=== PATIENT | female | born 1935 | race Caucasian/White ===

== ENCOUNTER 2017-01-20 02:10 | Observation (INO) | payer OTHER ==
[~2017-01-20] VITALS: Ht 152.4 cm; Wt 69.0 kg
[~2017-01-20 02:10] MED LIST: ATEN-173 PO; ATEN50TA8 PO; BIOTCAP2 PO; CLOP1TAB5 PO; DOCU100T7 PO; LOSA1TAB38 PO; MULT-506 PO; OMEP20TA PO; ROSU5TAB PO; SPIR25TA PO; TYLOTC500 PO; TZCSR120 PO
--- NOTE | 2017-01-20 02:29 | EMERGENCY ROOM VISIT NOTE ---
History Report prepared by Leanna: Jocelyne Scott Under the Supervision of: Carlton SalinasO. First contact with patient: 02:12 Chief Complaint: CHEST PAIN Stated Complaint: CHEST PAIN History of Present Illness The patient is a 81 year old female who presents to the Emergency Room with complaints of waxing and waning chest pain beginning 4 days ago. She states that the pain radiates into her back. The patient reports that the pain woke her from her sleep tonight. She reports that she thought that the pain was indigestion. She states that she usually does not get this pain or indigestion. The patient reports that she got a flu shot 2 weeks ago. The patient denies a change in medications, diet, and activity. She does report feeling fatigued, but that she normally feels this way. 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 She denies a history of a heart attack. Pt denies headache, change in vision, fevers, nausea, vomiting, shortness of breath, diarrhea, pain with urination, and melena. Source of History: patient Onset: 4 days ago Position: chest Timing: waxes/wanes Associated Symptoms: + back pain, + fatigue, No fevers, No chills, No headache, No SOB, No nausea, No vomiting Review of Systems See HPI for pertinent positives & negatives. A total of 10 systems reviewed and were otherwise negative. 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 (6) Dyslipidemia (7) Gallbladder problem (8) Paroxysmal atrial tachycardia (9) Paroxysmal ventricular tachycardia (10) Stage III chronic kidney disease (11) Ulcers Surgical Problems: (1) S/P cataract surgery (2) S/P cholecystectomy (3) S/P LEONID (total abdominal hysterectomy) (4) S/P total hip arthroplasty Family History Cancer SISTER Diabetes mellitus MOTHER Gallbladder disease Heart disease Hypertension Social History Smoking Status: Never Smoker Alcohol Use: none Drug Use: none Marital Status: Housing Status: lives with family Occupation Status: retired Current/Historical Medications Scheduled Amlodipine Besylate (Amlodipine Besylate), 5 MG PO QAM Atenolol (Tenormin), 25 MG PO QPM Atenolol (Tenormin), 50 MG PO QAM Biotin (Biotin 5000), 1 CAP PO DAILY Cholecalciferol (Vitamin D3), 1 CAP PO DAILY Clopidogrel Bisulfate (Plavix), 75 MG PO DAILY Diltiazem Hcl Ext Rel (Tiazac), 120 MG PO DAILY Docusate Sodium (Stool Softener), 100 MG PO DIRECTED Losartan Potassium (Cozaar), 100 MG PO DAILY Multivitamin (Multivitamin), 1 TAB PO DAILY Omeprazole (Omeprazole), 20 MG PO BID Rosuvastatin Calcium (Crestor), 5 MG PO DAILY Scheduled PRN Acetaminophen (Tylenol), 500 MG PO Q6 PRN for MILD PAIN Allergies Coded Allergies: Ampicillin (Verified Allergy, Intermediate, urticaria, 01/20/17) Naproxen (Verified Allergy, Intermediate, facial swelling,hypertension, ) Sulfa Antibiotics (Verified Allergy, Intermediate, RASH, 01/20/17) Cephalosporins (Verified Adverse Reaction, Intermediate, RASH, diarrhea, 01/20/17) Ciprofloxacin (Verified Adverse Reaction, Intermediate, itching, 01/20/17) Adhesives (Verified Adverse Reaction, Mild, RED SKIN, 01/20/17) Lisinopril (Verified Adverse Reaction, Mild, cough, 01/20/17) Propoxyphene (Verified Adverse Reaction, Mild, nausea, 01/20/17) Physical Exam Vital Signs Date Time Temp Pulse Resp B/P (MAP) Pulse Ox O2 Delivery O2 Flow Rate FiO2 01/20/17 07:05 65 16 95 01/20/17 07:00 143/67 01/20/17 06:35 64 19 95 01/20/17 06:30 59 23 139/51 97 Room Air 01/20/17 06:10 64 01/20/17 06:00 61 24 130/55 96 Room Air 01/20/17 05:30 60 25 155/74 97 Room Air 01/20/17 05:00 61 12 170/83 95 Room Air 01/20/17 04:32 61 18 225/78 94 Room Air 01/20/17 04:01 55 203/78 96 Room Air 01/20/17 03:53 56 199/87 96 Room Air 01/20/17 03:31 55 221/81 01/20/17 03:28 56 232/88 01/20/17 03:10 55 22 96 01/20/17 03:01 58 19 229/85 96 Room Air 01/20/17 03:00 229/85 01/20/17 02:40 60 14 94 01/20/17 02:30 212/91 01/20/17 02:26 65 01/20/17 02:26 220/75 01/20/17 02:20 Room Air 01/20/17 02:19 219/83 01/20/17 02:18 243/97 01/20/17 02:15 36.5 65 20 219/83 96 Room Air 01/20/17 02:15 Room Air 01/19/17 07:40 Room Air Physical Exam GENERAL: alert, well appearing, well nourished, no distress, non-toxic EYE EXAM: normal conjunctiva, PERRL and EOM's grossly intact OROPHARYNX: no exudate, no erythema, lips, buccal mucosa, and tongue normal and mucous membranes are moist NECK: supple, no nuchal rigidity, no adenopathy, non-tender LUNGS: Clear to auscultation. Normal chest wall mechanics, no w/r/r HEART: no murmurs, S1 normal and S2 normal ABDOMEN: abdomen soft, non-tender, normo-active bowel sounds, no masses, no rebound or guarding. BACK: Back is symmetrical on inspection and there is no deformity, no midline tenderness, no CVA tenderness. SKIN: no rashes and no bruising UPPER EXTREMITIES: upper extremities are grossly normal. Nml rom and nml pulses b/l. LOWER EXTREMITIES: No pitting edema. Nml rom and nml pulses b/l. NEURO EXAM: Normal sensorium, cranial nerves II-XII grossly intact, normal speech, no gross weakness of arms, no gross weakness of legs. Medical Decision & Procedures ER Provider Diagnostic Interpretation: Chest X-Ray 1 view: No cardiomegaly. No effusion. No pulmonary edema. No widening mediastinum. No focal infiltrate. No overt pulmonary edema. Radiology results have been interpreted by [facility]. CTA CHEST: Compared to CT 04/03/14. Motion artifact. No evidence of PE. Peripheral vessels not well seen. No obvious dissection. Mild atelectasis. No pneumothorax or pleural effusion. Age-indeterminate compression deformity of the L1 vertebral body. Additional incidental findings. Laboratory Results Test 01/20/17 01:39 01/20/17 04:20 D-Dimer 580 ug/L FEU (0-500) Magnesium Level 2.1 mg/dl (1.8-2.4) Total Bilirubin 0.4 mg/dl (0.2-1) Aspartate Amino Transf (AST/SGOT) 15 U/L (15-37) Alanine Aminotransferase (ALT/SGPT) 23 U/L (12-78) Alkaline Phosphatase 78 U/L (45-117) Pro-B-Type Natriuretic Peptide 232 pg/ml (0-1800) Total Protein 7.6 gm/dl (6.4-8.2) Albumin 3.7 gm/dl (3.4-5.0) Globulin 3.9 gm/dl (2.5-4.0) Albumin/Globulin Ratio 0.9 (0.9-2) Lipase 214 U/L (73-393) Free Thyroxine 1.14 ng/dl (0.80-1.60) Urine Color YELLOW Urine Appearance CLEAR (CLEAR) Urine pH 7.5 (4.5-7.5) Urine Specific [place] 1.012 (1.000-1.030) Urine Protein NEG (NEG) Urine Glucose (UA) NEG (NEG) Urine Ketones NEG (NEG) Urine Occult Blood NEG (NEG) Urine Nitrite NEG (NEG) Urine Bilirubin NEG (NEG) Urine Urobilinogen NEG (NEG) Urine Leukocyte Esterase NEG (NEG) Laboratory results per my review. Medications Administered Medications (Trade) Dose Ordered Sig/Mary Route Start Time Stop Time Status Last Admin Dose Admin Sodium Chloride 1,000 ml @ 200 mls/hr Q5H STAT IV 01/20/17 03:12 01/20/17 08:11 DC 01/20/17 03:59 200 MLS/HR Nitroglycerin (Nitroglycerin 2% Oint) 1 inch NOW ONCE EXT 01/20/17 03:30 01/20/17 03:31 DC 01/20/17 03:30 1 INCH Hydralazine HCl (HydrALAZINE INJ) 10 mg NOW STAT IV. 01/20/17 04:37 01/20/17 04:38 DC 01/20/17 05:00 10 MG Morphine Sulfate (MoRPHine SULFATE INJ) 4 mg NOW STAT IV 01/20/17 05:28 01/20/17 05:29 DC 01/20/17 05:33 4 MG Ondansetron HCl (Zofran Inj) 4 mg NOW STAT IV 01/20/17 05:52 01/20/17 05:53 DC 01/20/17 05:56 4 MG Ketorolac Tromethamine (Toradol Inj) 15 mg NOW STAT IV 01/20/17 06:16 01/20/17 06:17 DC 01/20/17 06:23 15 MG ECG Indication: chest pain Rate (beats per minute): 61 Rhythm: sinus rhythm Findings: no acute ischemic change, other (normal axis, normal intervals ) Change: repeat ECG: sinus rhythm, rate of 61, normal axis, normal intervals, no acute ischemic changes ED Course 0220: The patient was evaluated in room B6. A complete history and physical exam was performed. 0312: Ordered Sodium Chloride 1,000 ml @ 200 mls/hr IV. 0330: Ordered Nitroglycerin 1 inch EXT. 0437: Ordered Hydralazine HCl 10 mg IV. 0500: I updated the patient on results. 0528: Ordered Morphine Sulfate 4 mg IV. 0552: Ordered Ondansetron HCl 4 mg IV. 0615: The patient reports still having pain, but that it is better than it was. 0616: Ordered Toradol Inj 15 mg IV. 0625: Upon reevaluation, the patient is resting. I discussed the findings and the treatment plan with the patient. She expresses agreement and understanding. I spoke with Dr. Ohara of [facility] She will be evaluated for further management. Medical Decision Differential diagnosis: Etiologies such as cardiac ischemia, aortic dissection, pulmonary embolism, pneumonia, pneumothorax, musculoskeletal, infections, pericarditis, myocarditis , esophageal rupture, gastrointestinal, as well as others were entertained. Pt with persistent hypertension until administration of hydralazine. Pain persistent despite meds. No evidence of vascular etiology. Trop negative but pt with multiple risk factors. No recent hx of suggest occult infectious etiology, No evidence of tamponade. Pt aware of all results and agreeable with plan for admission. Despite atypical pain over the last several days and negative trop initially, concern for possible ACS. Discussed case with admitting hospitalist. Medication Reconcilliation Current Medication List: was personally reviewed by me Blood Pressure Screening Patient's blood pressure: Elevated blood pressure Blood pressure disposition: Referred to PCP Consults Time Called: [phone] Consulting Physician: Dr. Pemberton Returned Call: [phone] I reviewed the patient's case with Dr. Ohara. He will evaluate the patient for further management. Impression Primary Impression: Chest pain Additional Impressions: Hypertension DM type 2 (diabetes mellitus, type 2) Scribe Attestation The scribe's documentation has been prepared under my direction and personally reviewed by me in its entirety. I confirm that the note above accurately reflects all work, treatment, procedures, and medical decision making performed by me. Departure Information Dispostion Being Evaluated By Hospitalist Prescriptions Amlodipine Besylate (Amlodipine Besylate) 5 Mg Tab 5 MG PO QAM, #30 TAB Prov: Dav Garcia MD 01/23/17 Referrals Bee Salgado M.D. 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
[2017-01-20] MEDS ORDERED: DILT120C68 PO (02:42)
[2017-01-20 02:44] LABS: BASO % 0.5 %; BASO ABS # 0.04 K/uL (0-0.2); COMPLETE YES; EOS % 4.2 %; IG% 0.1 %; LYMPH % 25.8 %; LYMPH ABS # 2.01 K/uL (1.2-3.4); MEAN CELL VOLUME 93.5 fL (80-100); MEAN CORPUSCULAR HEMOGLOBIN 31.6 pg (25-34); MEAN CORPUSCULAR HGB CONC 33.8 g/dl (32-36); MEAN PLATELET VOLUME 10.2 fL (7.4-10.4); MONO % 7.8 %; NEUT % 61.6 %; PLATELET COUNT 313 K/uL (130-400); RED BLOOD COUNT 4.49 M/uL (4.2-5.4)
[2017-01-20] MEDS ORDERED: CHOL2000 PO (02:45)
[2017-01-20 03:03] LABS: PROTHROMBIN TIME (PATIENT) 10.6 SECONDS (9.0-12.0)
[2017-01-20 03:05] LABS: ALT/SGPT 23 U/L (12-78); AST/SGOT 15 U/L (15-37); BLOOD UREA NITROGEN 22 mg/dl (7-18); BUN/CREATININE RATIO 24.2 (10-20); CALCIUM 9.2 mg/dl (8.5-10.1); CARBON DIOXIDE 26 mmol/L (21-32); CHLORIDE 105 mmol/L (98-107); CREATININE 0.89 mg/dl (0.60-1.20); GLUCOSE 137 mg/dl (70-99); MAGNESIUM 2.1 mg/dl (1.8-2.4); POTASSIUM 3.7 mmol/L (3.5-5.1); SODIUM 141 mmol/L (136-145)
[2017-01-20] MEDS ORDERED: SODIUM CHLORIDE 0.9% 1000ML 1,000 ML IV STA (03:12)
[2017-01-20 03:16] LABS: ALB/GLOB RATIO 0.9 (0.9-2); ALKALINE PHOSPHATASE 78 U/L (45-117)
[2017-01-20] MEDS ORDERED: NITROGLYCERIN OINT 2% 1GM PACKET EXT ONE (03:30)
[2017-01-20] MEDS ORDERED: OPTIRAY 320 IV PRN (04:00)
[2017-01-20 04:36] LABS: URINE APPEARANCE CLEAR (CLEAR); URINE BILIRUBIN NEG (NEG); URINE COLOR YELLOW; URINE NITRITE NEG (NEG); URINE PH 7.5 (4.5-7.5); URINE SPECIFIC GRAVITY 1.012 (1.000-1.030); UROBILINOGEN NEG (NEG); ZZUR CULT IF INDIC CLEAN CATCH NO
[2017-01-20] MEDS ORDERED: HydrALAZINE HCL 20 MG/ML VIAL IV. STA (04:37)
[2017-01-20 04:42] LABS: MANUAL MICROSCOPIC REQUIRED? NO; REVIEW REQ? NO
[2017-01-20] MEDS ORDERED: MoRPHine SULFATE 4 MG/ML 1 ML CARP\\VIAL IV STA (05:28)
[2017-01-20] MEDS ORDERED: ONDANSETRON INJ 2 MG/ML 2 ML VIAL IV STA (05:52)
[2017-01-20] MEDS ORDERED: KETOROLAC TROMETHAMINE 30 MG/ML VIAL IV STA (06:16)
--- NOTE | 2017-01-20 06:47 | DIAGNOSTIC IMAGING REPORT ---
CHEST ONE VIEW PORTABLE CLINICAL HISTORY: Atypical chest pain COMPARISON STUDY: 03/29/2015 FINDINGS: The heart is at the upper limits of normal in size. There is no failure. There is no focal pulmonary consolidation. There are no pleural effusions.[ IMPRESSION: No active disease in the chest. Electronically signed by: Wade Ricks M.D. 01/20/2017 6:46 AM Dictated Date/Time: 01/20/2017 6:46 AM
[2017-01-20] MEDS ORDERED: SODIUM CHLORIDE 0.9% 500ML 500 ML IV SCH (07:15)
[2017-01-20] MEDS ORDERED: ACETAMINOPHEN 325 MG TAB PO PRN (07:15)
[2017-01-20] MEDS ORDERED: MoRPHine SULFATE 2 MG/ML CARP IV PRN (07:15)
[2017-01-20] MEDS ORDERED: ONDANSETRON INJ 2 MG/ML 2 ML VIAL IV PRN (07:15)
--- NOTE | 2017-01-20 07:25 | DIAGNOSTIC IMAGING REPORT ---
CT ANGIOGRAM OF THE CHEST CLINICAL HISTORY: Atypical chest pain. COMPARISON STUDY: CT scan of the chest dated 04/03/2014. Chest x-ray dated 01/20/2017. TECHNIQUE: Following the IV administration of 92 cc of Optiray 320, CT angiogram of the chest was performed from the upper abdomen to the thoracic inlet utilizing the pulmonary embolus protocol. Images are reviewed in the axial, sagittal, and coronal planes. 3-D MIPS images are created and assessed. IV contrast was administered without complication. A dose lowering technique was utilized adhering to the principles of ALARA. Examination is significantly degraded by motion artifact. CT DOSE: 306.46 mGy.cm FINDINGS: Thyroid: Imaged portions of the thyroid gland are mildly enlarged and heterogeneous in attenuation. Thoracic aorta: There is atherosclerotic calcification of the thoracic aorta, which is normal in caliber and demonstrates standard 3-vessel arch anatomy. No dissection is seen. Pulmonary vasculature: The main pulmonary arteries are dilated suggesting pulmonary artery hypertension. There are no filling defects identified in main, lobar, or segmental pulmonary branches to suggest pulmonary embolus. Evaluation of the peripheral branches is degraded by motion artifact. Heart: The heart is enlarged and without pericardial effusion. The coronary arteries are densely calcified. Lungs and pleural spaces: Evaluation of the lung parenchyma is degraded by motion artifact. No airspace consolidation or pleural effusion is seen. There is bibasilar atelectasis The trachea and central airways are clear. Mediastinum: There are numerous subcentimeter mediastinal lymph nodes. These are not pathologically enlarged by size criteria. Tessie: Clear. Axillae: There is no axillary lymphadenopathy. Upper abdomen: Partially visualized upper abdominal viscera is within normal limits. Skeletal structures: The skeletal structures are osteopenic. Degenerative change and hyperkyphosis are noted in the thoracic spine. There is an age indeterminant superior endplate compression deformity of L1, new from 2013. Arthritic change is also seen in the shoulders. No lytic or blastic bony lesions are seen. IMPRESSION: 1. Motion degraded examination. 2. There is no evidence of pulmonary embolus in the main, lobar, or segmental pulmonary arteries. 3. There is no airspace consolidation or pleural effusion. 4. Cardiomegaly. 5. There is an age indeterminant superior endplate compression deformity of L1, new from 2013. Electronically signed by: Santiago Hanley M.D. 01/20/2017 7:24 AM Dictated Date/Time: 01/20/2017 7:18 AM
[2017-01-20] MEDS ORDERED: ALBUTEROL 0.083% NEBU SOLN 3 ML VIAL INH PRN (07:45)
--- NOTE | 2017-01-20 07:55 | History and Physical ---
History & Physical Date & Time of Service: Jan 20, 2017 at 07:19 Chief Complaint: Chest Pain Primary Care Physician: Bee Salgado M.D. History of Present Illness Source: patient, family Patient is a 81 yr female with PMH of CVA, GERD, HLP, HTN, DDD and other problems presents with history of Intermittent chest pain since 1 week duration. Patient states chest pain is dull, across the chest, radiates to b/l upper arms, 2/10 intensity, which have been progressively worsening since yesterday. Received NTG in ED without much help. Reports associated nausea but denies vomiting. Reports chronic orthostatic lightheadedness since having had stroke in 2014. Also states having cough with yellowish expectoration. Patient presented with uncontrolled BP which improved with hydralazine. Admits to being non complaint with salt intake. Denies any history of SOB, wheezing, orthopnea, PND, leg swelling, abd pain, diarrhea, dysuria, palpitations, fever, chills, headache, change in vision. 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 Status: Chronic (6) Dyslipidemia Status: Chronic (7) Gallbladder problem Status: Chronic (8) Paroxysmal atrial tachycardia Status: Chronic (9) Paroxysmal ventricular tachycardia Status: Chronic (10) Stage III chronic kidney disease Status: Chronic (11) Ulcers Status: Chronic Surgical Problems: (1) S/P cataract surgery Status: Chronic (2) S/P cholecystectomy Status: Chronic (3) S/P LEONID (total abdominal hysterectomy) Status: Chronic (4) S/P total hip arthroplasty Status: Chronic Family History Cancer SISTER Diabetes mellitus MOTHER Gallbladder disease Heart disease Hypertension Reviewed Social History Smoking Status: Never Smoker Alcohol Use: none Drug Use: none Marital Status: Occupational Status: retired Immunizations History of Influenza Vaccine: N/A History of Tetanus Vaccine?: Yes History of Pneumococcal: Yes History of Hepatitis B Vaccine: No Allergies Coded Allergies: Ampicillin (Verified Allergy, Intermediate, urticaria, 01/20/17) Naproxen (Verified Allergy, Intermediate, facial swelling,hypertension, ) Sulfa Antibiotics (Verified Allergy, Intermediate, RASH, 01/20/17) Cephalosporins (Verified Adverse Reaction, Intermediate, RASH, diarrhea, 01/20/17) Ciprofloxacin (Verified Adverse Reaction, Intermediate, itching, 01/20/17) Adhesives (Verified Adverse Reaction, Mild, RED SKIN, 01/20/17) Lisinopril (Verified Adverse Reaction, Mild, cough, 01/20/17) Propoxyphene (Verified Adverse Reaction, Mild, nausea, 01/20/17) Home Medications Scheduled Atenolol (Tenormin), 25 MG PO QPM Atenolol (Tenormin), 50 MG PO QAM Biotin (Biotin 5000), 1 CAP PO DAILY Cholecalciferol (Vitamin D3), 1 CAP PO DAILY Clopidogrel Bisulfate (Plavix), 75 MG PO DAILY Diltiazem Hcl Ext Rel (Tiazac), 120 MG PO DAILY Docusate Sodium (Stool Softener), 100 MG PO DIRECTED Losartan Potassium (Cozaar), 100 MG PO DAILY Multivitamin (Multivitamin), 1 TAB PO DAILY Omeprazole (Omeprazole), 20 MG PO BID Rosuvastatin Calcium (Crestor), 5 MG PO DAILY Review of Systems See HPI for pertinent positives & negatives. A total of 10 systems reviewed and were otherwise negative. Physical Exam Vital Signs Date Time Temp Pulse Resp B/P (MAP) Pulse Ox O2 Delivery O2 Flow Rate FiO2 01/20/17 06:30 59 23 139/51 97 Room Air 01/20/17 06:10 64 01/20/17 06:00 61 24 130/55 96 Room Air 01/20/17 05:30 60 25 155/74 97 Room Air 01/20/17 05:00 61 12 170/83 95 Room Air 01/20/17 04:32 61 18 225/78 94 Room Air 01/20/17 04:01 55 203/78 96 Room Air 01/20/17 03:53 56 199/87 96 Room Air 01/20/17 03:31 55 221/81 01/20/17 03:28 56 232/88 01/20/17 03:10 55 22 96 01/20/17 03:01 58 19 229/85 96 Room Air 01/20/17 03:00 229/85 01/20/17 02:40 60 14 94 01/20/17 02:30 212/91 01/20/17 02:26 65 01/20/17 02:26 220/75 01/20/17 02:20 Room Air 01/20/17 02:19 219/83 01/20/17 02:18 243/97 01/20/17 02:15 36.5 65 20 219/83 96 Room Air 01/20/17 02:15 Room Air General Appearance: WD/WN, no apparent distress Head: normocephalic, atraumatic Eyes: normal inspection, PERRL, EOMI, sclerae normal ENT: normal ENT inspection, hearing grossly normal Neck: supple, trachea midline Respiratory/Chest: chest non-tender, lungs clear, normal breath sounds, no respiratory distress, no accessory muscle use Cardiovascular: regular rate, rhythm, no edema, + systolic murmur Abdomen/GI: normal bowel sounds, non tender, soft Back: normal inspection Extremities/Musculoskelatal: normal inspection, no pedal edema 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, no motor/sensory deficits, alert, normal mood/affect, oriented x 3 Skin: normal color, warm/dry Diagnostics Laboratory Results Results Past 24 Hours Test 01/20/17 01:39 01/20/17 04:20 01/20/17 07:12 Range/Units White Blood Count 7.80 4.8-10.8 K/uL Red Blood Count 4.49 4.2-5.4 M/uL Hemoglobin 14.2 12.0-16.0 g/dL Hematocrit 42.0 37-47 % Mean Corpuscular Volume 93.5 80-100 fL Mean Corpuscular Hemoglobin 31.6 25-34 pg Mean Corpuscular Hemoglobin Concent 33.8 32-36 g/dl Platelet Count 313 130-400 K/uL Mean Platelet Volume 10.2 7.4-10.4 fL Neutrophils (%) (Auto) 61.6 % Lymphocytes (%) (Auto) 25.8 % Monocytes (%) (Auto) 7.8 % Eosinophils (%) (Auto) 4.2 % Basophils (%) (Auto) 0.5 % Neutrophils # (Auto) 4.80 1.4-6.5 K/uL Lymphocytes # (Auto) 2.01 1.2-3.4 K/uL Monocytes # (Auto) 0.61 0.11-0.59 K/uL Eosinophils # (Auto) 0.33 0-0.5 K/uL Basophils # (Auto) 0.04 0-0.2 K/uL RDW Standard Deviation 43.9 36.4-46.3 fL RDW Coefficient of Variation 12.7 11.5-14.5 % Immature Granulocyte % (Auto) 0.1 % Immature Granulocyte # (Auto) 0.01 0.00-0.02 K/uL Prothrombin Time 10.6 9.0-12.0 SECONDS Prothromb Time International Ratio 1.0 0.9-1.1 D-Dimer 580 0-500 ug/L FEU Sodium Level 141 136-145 mmol/L Potassium Level 3.7 3.5-5.1 mmol/L Chloride Level 105 98-107 mmol/L Carbon Dioxide Level 26 21-32 mmol/L Anion Gap 10.0 3-11 mmol/L Blood Urea Nitrogen 22 7-18 mg/dl Creatinine 0.89 0.60-1.20 mg/dl Est Creatinine Clear Calc Drug Dose 44.3 ml/min Estimated GFR () 70.0 Estimated GFR (Non- 60.4 BUN/Creatinine Ratio 24.2 10-20 Random Glucose 137 70-99 mg/dl Calcium Level 9.2 8.5-10.1 mg/dl Magnesium Level 2.1 1.8-2.4 mg/dl Total Bilirubin 0.4 0.2-1 mg/dl Aspartate Amino Transf (AST/SGOT) 15 15-37 U/L Alanine Aminotransferase (ALT/SGPT) 23 12-78 U/L Alkaline Phosphatase 78 45-117 U/L Troponin I < 0.015 0-0.045 ng/ml Pro-B-Type Natriuretic Peptide 232 0-1800 pg/ml Total Protein 7.6 6.4-8.2 gm/dl Albumin 3.7 3.4-5.0 gm/dl Globulin 3.9 2.5-4.0 gm/dl Albumin/Globulin Ratio 0.9 0.9-2 Lipase 214 73-393 U/L Thyroid Stimulating Hormone (TSH) 5.160 0.300-4.500 uIu/ml Urine Color YELLOW Urine Appearance CLEAR CLEAR Urine pH 7.5 4.5-7.5 Urine Specific [place] 1.012 1.000-1.030 Urine Protein NEG NEG Urine Glucose (UA) NEG NEG Urine Ketones NEG NEG Urine Occult Blood NEG NEG Urine Nitrite NEG NEG Urine Bilirubin NEG NEG Urine Urobilinogen NEG NEG Urine Leukocyte Esterase NEG NEG Diagnostic Radiology CXR: No active disease in the chest. CTA: Initial reading:No PE, No dissection, mild atelectasis, No Pneumothorax or pleural effusion EKG EKG: NSR, Non specific ST changes Impression Assessment and Plan Chest Pain: R/O ACS Risk factors: H/O HTN, HLP Initial troponin:Negative EKG shows:NSR, Nonspecific ST changes CXR: Unremarkable CTA: Initial reading:No PE, No dissection, mild atelectasis, No Pneumothorax or pleural effusion Official reading:pending Check ECHO Trend serial cardiac enzymes, repeat EKG in AM, fasting lipid panel Continue plavix, beta weston, statins Oxygen PRN Cardiology consult Hypertensive Urgency: Non compliance with salt intake currently BP improved Continue Atenolol, Diltiazem, losartan Monitor Elevated D-dimer: follow up CTA, venous doppler Elevated TSH: check free T4 H/O CVA: continue plavix, statins GERD: continue PPI HLP: continue statins DVT Px: Heparin SQ Code Status: Full Code Disposition: Observe in Telemetry VTE Prophylaxis VTE Risk Assessment Done? Y/N: Yes Risk Level: Low
[2017-01-20] MEDS ORDERED: IV FLUIDS COMPLETED PRN (08:00)
[2017-01-20 08:17] VITALS: BP 157/65; PULSE 64; TEMP 36.6; O2SAT 96; Ht 152.4 cm; Wt 69.0 kg
[2017-01-20] MEDS ORDERED: ROSUVASTATIN CALCIUM 10 MG TAB PO SCH (09:00)
--- NOTE | 2017-01-20 10:53 | DIAGNOSTIC IMAGING REPORT ---
ULTRASOUND VENOUS DOPPLER LWR EXT BILA CLINICAL HISTORY: Leg swelling COMPARISON STUDY: August 08, 2012 FINDINGS: Real-time and color flow Doppler imaging were performed. Flow was seen within the femoral, popliteal and calf veins with no intraluminal thrombus demonstrated. The saphenous vein is patent. IMPRESSION: No evidence of lower extremity DVT. Electronically signed by: Wade Ricks M.D. 01/20/2017 10:52 AM Dictated Date/Time: 01/20/2017 10:51 AM
[2017-01-20] MEDS: CHOLECALCIFEROL 1000 INTER.UNIT TAB PO SCH (10:56)
[2017-01-20] MEDS: NITROGLYCERIN OINT 2% 1GM PACKET EXT SCH ×3 (10:56→21:56)
[2017-01-20] MEDS: MULTIVITAMIN TAB PO SCH (10:57)
[2017-01-20] MEDS: CLOPIDOGREL BISULFATE 75 MG TAB PO SCH (10:58)
[2017-01-20] MEDS: PANTOprazole SOD 40 MG TAB PO SCH ×2 (10:58→21:33)
[2017-01-20] MEDS: DILTIAZEM HCL 120 MG EXT REL CAP PO SCH (10:59)
[2017-01-20] MEDS: LOSARTAN POTASSIUM 50 MG TAB PO SCH (11:00)
[2017-01-20 12:00] VITALS: BP 145/71; PULSE 65; TEMP 36.7; O2SAT 95
[2017-01-20] MEDS ORDERED: NURSING VERBAL MED ORDER ONE ×2 (12:30→21:45)
--- NOTE | 2017-01-20 13:24 | CARDIOLOGY CONSULTATION ---
DATE OF CONSULTATION: 01/20/2017 DATE OF CONSULTATION: 01/20/2017 REQUESTED BY: Blas Subramanian. REASON FOR CONSULTATION: Chest pain. HISTORY OF PRESENT ILLNESS: This is an 81-year-old female who has been followed by Gabe Freedman through the cardiology clinic with history of heart palpitations. She has no significant past cardiac history such as coronary artery disease or valvular heart disease. She does have a previous history of a stroke, is treated for hypertension and diabetes. She was in her usual state of health up until a week ago. She began to have chest discomfort which she describes as a heaviness across the anterior portion of her chest which was more or less continuous throughout the week. It is not associated with shortness of breath or diaphoresis. She had no nausea or vomiting. She does have a history of GERD. She has noticed no melena or hematochezia. The patient was admitted and her chest pain resolved. She has not had a reoccurrence. Her EKGs showed no acute changes. Her first set of cardiac markers are negative. ALLERGIES: AMPICILLIN, NAPROXEN, SULFA ANTIBIOTICS, CEPHALOSPORINS, CIPROFLOXACIN, ADHESIVES, LISINOPRIL, PROPOXYPHENE. PAST MEDICAL HISTORY: As outlined in the history of chief complaint. The patient has had a previous stroke. 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 She is a type 2 diabetic with a history of dyslipidemia. She is treated for asthma. She has had paroxysmal atrial arrhythmias. She has stage III kidney disease. In the past, she has been treated for GERD as well as stomach ulcers. FAMILY MEDICAL HISTORY: Noncontributory. SOCIAL HISTORY: The patient has never smoked. She is and lives with her spouse. REVIEW OF SYSTEMS: A 10-point review of systems is negative except for the history of chief complaint. PHYSICAL EXAMINATION: GENERAL: She is alert and oriented. VITAL SIGNS: Blood pressure is 130/60, pulse is regular at 60 beats per minute. She is afebrile. HEAD, EYES, EARS, NOSE, AND THROAT: She is normocephalic. Pupils are equal and reactive to light. Extraocular muscles are intact bilaterally. NECK: The neck veins are flat. Carotids have good upstrokes bilaterally without bruits. Thyroid is nonpalpable. RESPIRATORY: Breath sounds equal bilaterally and clear to auscultation. CARDIOVASCULAR: Heart has a regular rhythm. Normal S1, S2. No S3, S4. No cardiac rubs or murmurs. GASTROINTESTINAL: Abdomen is soft, nontender without organomegaly. EXTREMITIES: Free of edema, digit clubbing, or cyanosis. NEUROLOGIC: Grossly intact. SKIN: Warm to touch. LYMPH NODES: Negative to palpation. IMPRESSION: 1. Atypical chest pain. 2. Diabetes mellitus. 3. Dyslipidemia. 4. History of stroke. 5. History of gastroesophageal reflux disease. RECOMMENDATIONS: The patient does not have elevation in her cardiac markers despite having ongoing chest pain for approximately a week. I think if her second set of markers are negative, then I do not think any further cardiac testing is indicated. You may want to consider a GI evaluation as patient may need endoscopy with her history of GERD and previous stomach ulcers. She may have recurrence for her peptic acid disease.
[2017-01-20] MEDS: HEPARIN SOD 5000 UNIT/0.5 ML CARP SQ SCH ×2 (14:00→21:56)
[2017-01-20 15:10] VITALS: BP 119/66; PULSE 56; TEMP 36.4; O2SAT 93
[2017-01-20] MEDS ORDERED: METOPROLOL TARTRATE 1 MG/ML VIAL IV PRN (15:15)
--- NOTE | 2017-01-20 15:50 | ECHOCARDIOGRAM REPORT ---
*NOTICE TO RECEIVING REPUBLICAN AGENCY This information is strictly Confidential and protected under [place] law. [place] law prohibits you from making any further disclosure of this information unless further disclosure is expressly permitted by the written consent of the person to whom it pertains or is authorized by law. A general authorization for the release of medical or other information is not sufficient for this purpose. Hospital accepts no responsibility if the information is made available to any other person, INCLUDING THE PATIENT. Interpretation Summary * Name: RONNIE GRANGER Study Date: 01/20/2017 09:14 AM BP: 132/55 mmHg * Patient Location: [facility] HR: 63 * : 1935 (M/d/yyyy) Gender: Female Height: 60 in * Age: 81 yrs Ethnicity: [place] Weight: 166 lb * Ordering Physician: Rashawn Ohara * Referring Physician: Brianna Mari D.O. * Performed By: Vicenta Irizarry RCS * * Reason For Study: CHEST PAIN * BSA: 1.7 m2 * -- Conclusions -- * There is moderate concentric left ventricular hypertrophy. * Left ventricular systolic function is normal. * Ejection Fraction = 65-70%. * The left ventricular wall motion is normal. * The right ventricular systolic function is normal. * Grade I diastolic dysfunction, (abnormal relaxation pattern). Procedure Details * A complete two-dimensional transthoracic echocardiogram was performed (2D, M-mode, Doppler and color flow Doppler). Left Ventricle * The left ventricle is grossly normal size. * There is moderate concentric left ventricular hypertrophy. * Left ventricular systolic function is normal. * Ejection Fraction = 65-70%. * The left ventricular wall motion is normal. Right Ventricle * The right ventricle is normal size. * The right ventricular systolic function is normal. Atria * The left atrium is mildly dilated. * Right atrial size is normal. * The interatrial septum is intact with no evidence for an atrial septal defect. Mitral Valve * There is moderate mitral annular calcification. * Significant mitral regurgitation is absent. Tricuspid Valve * The tricuspid valve anatomy is normal. * Significant tricuspid regurgitation is absent. Aortic Valve * Aortic valve sclerosis mild, without significant aortic valvular stenosis. Pulmonic Valve * The pulmonic valve is not well visualized. * There is no significant pulmonary regurgitation. Great Vessels * The aortic root and proximal ascending aorta are normal sized. Pericardium/Pleural * There is no pericardial effusion. Left Ventricular Diastolic Function * Grade I diastolic dysfunction, (abnormal relaxation pattern). MMode 2D Measurements and Calculations IVSd 1.5 cm IVSs 1.8 cm LVIDd 3.5 cm LVIDs 2.4 cm LVPWd 1.2 cm LVPWs 1.4 cm IVS/LVPW 1.2 FS 33.1 % EDV(Teich) 51.9 ml ESV(Teich) 19.3 ml EF(Teich) 62.8 % EDV(cubed) 44.0 ml ESV(cubed) 13.1 ml EF(cubed) 70.1 % % IVS thick 24.3 % % LVPW thick 10.4 % LV mass(C)d 166.5 grams LV mass(C)dI 96.6 grams/m\S\2 LV mass(C)s 132.9 grams LV mass(C)sI 77.1 grams/m\S\2 SV(Teich) 32.6 ml SI(Teich) 18.9 ml/m\S\2 SV(cubed) 30.8 ml SI(cubed) 17.9 ml/m\S\2 Ao root diam 2.9 cm Ao root area 6.4 cm\S\2 LA dimension 3.5 cm LA/Ao 1.2 LVOT diam 1.8 cm LVOT area 2.5 cm\S\2 LVAd ap4 27.7 cm\S\2 LVLd ap4 6.9 cm EDV(MOD-sp4) 88.9 ml EDV(sp4-el) 93.8 ml LVAs ap4 15.2 cm\S\2 LVLs ap4 5.6 cm ESV(MOD-sp4) 34.0 ml ESV(sp4-el) 34.5 ml EF(MOD-sp4) 61.7 % EF(sp4-el) 63.2 % LVAd ap2 28.1 cm\S\2 LVLd ap2 7.4 cm EDV(MOD-sp2) 88.0 ml EDV(sp2-el) 90.3 ml LVAs ap2 12.4 cm\S\2 LVLs ap2 5.4 cm ESV(MOD-sp2) 24.1 ml ESV(sp2-el) 24.1 ml EF(MOD-sp2) 72.6 % EF(sp2-el) 73.3 % LVLd %diff 6.2 % EDV(MOD-bp) 89.3 ml LVLs %diff -3.93 % ESV(MOD-bp) 28.5 ml EF(MOD-bp) 68.1 % SV(MOD-sp4) 54.9 ml SI(MOD-sp4) 31.8 ml/m\S\2 SV(MOD-sp2) 63.9 ml SI(MOD-sp2) 37.1 ml/m\S\2 SV(MOD-bp) 60.9 ml SI(MOD-bp) 35.3 ml/m\S\2 SV(sp4-el) 59.3 ml SI(sp4-el) 34.4 ml/m\S\2 SV(sp2-el) 66.2 ml SI(sp2-el) 38.4 ml/m\S\2 Doppler Measurements and Calculations MV E max jasen 90.6 cm/sec MV A max jasen 138.6 cm/sec MV E/A 0.65 MV P1/2t max jasen 115.5 cm/sec MV P1/2t 89.6 msec MVA(P1/2t) 2.5 cm\S\2 MV dec slope 377.4 cm/sec\S\2 MV dec time 0.31 sec Ao V2 max 166.0 cm/sec Ao max PG 11.0 mmHg Ao max PG (full) 0.90 mmHg ISRAEL(V,A) 2.4 cm\S\2 ISRAEL(V,D) 2.4 cm\S\2 LV V1 max PG 10.1 mmHg LV V1 max 159.1 cm/sec PA V2 max 103.9 cm/sec PA max PG 4.3 mmHg PI max jasen 171.8 cm/sec PI max PG 11.8 mmHg PI dec slope 173.2 cm/sec\S\2 PI P1/2t 290.5 msec TR max jasen 297.0 cm/sec
--- NOTE | 2017-01-20 18:04 | Progress Note ---
Internal Med Progress Note Date of Service: Jan 20, 2017. Provider Documentation: resting comfortably. denies any chest pain or sob. No nausea. hemodynamics stable. Mild elevation in troponin could be from elevated BP on presentation. Will trend CE , Follow echo. BP control. Cardiology on board. ASSESSMENT & PLAN: [] DVT PROPHYLAXIS [] DISPOSITION [] Vital Signs: Date Time Temp Pulse Resp B/P (MAP) Pulse Ox O2 Delivery O2 Flow Rate FiO2 01/20/17 16:00 Room Air 01/20/17 15:10 36.4 56 18 119/66 (83) 93 Room Air 01/20/17 12:00 Room Air 01/20/17 12:00 36.7 65 20 145/71 (95) 95 Room Air 01/20/17 08:17 36.6 64 18 157/65 96 Room Air 01/20/17 07:47 36.5 65 16 132/55 95 01/20/17 07:30 132/55 01/20/17 07:05 65 16 95 01/20/17 07:00 143/67 01/20/17 06:35 64 19 95 01/20/17 06:30 59 23 139/51 97 Room Air 01/20/17 06:10 64 01/20/17 06:00 61 24 130/55 96 Room Air 01/20/17 05:30 60 25 155/74 97 Room Air 01/20/17 05:00 61 12 170/83 95 Room Air 01/20/17 04:32 61 18 225/78 94 Room Air 01/20/17 04:01 55 203/78 96 Room Air 01/20/17 03:53 56 199/87 96 Room Air 01/20/17 03:31 55 221/81 01/20/17 03:28 56 232/88 01/20/17 03:10 55 22 96 01/20/17 03:01 58 19 229/85 96 Room Air 01/20/17 03:00 229/85 01/20/17 02:40 60 14 94 01/20/17 02:30 212/91 01/20/17 02:26 65 01/20/17 02:26 220/75 01/20/17 02:20 Room Air 01/20/17 02:19 219/83 01/20/17 02:18 243/97 01/20/17 02:15 36.5 65 20 219/83 96 Room Air 01/20/17 02:15 Room Air Lab Results: Results Past 24 Hours Test 01/20/17 01:39 01/20/17 04:20 01/20/17 12:56 Range/Units White Blood Count 7.80 4.8-10.8 K/uL Red Blood Count 4.49 4.2-5.4 M/uL Hemoglobin 14.2 12.0-16.0 g/dL Hematocrit 42.0 37-47 % Mean Corpuscular Volume 93.5 80-100 fL Mean Corpuscular Hemoglobin 31.6 25-34 pg Mean Corpuscular Hemoglobin Concent 33.8 32-36 g/dl Platelet Count 313 130-400 K/uL Mean Platelet Volume 10.2 7.4-10.4 fL Neutrophils (%) (Auto) 61.6 % Lymphocytes (%) (Auto) 25.8 % Monocytes (%) (Auto) 7.8 % Eosinophils (%) (Auto) 4.2 % Basophils (%) (Auto) 0.5 % Neutrophils # (Auto) 4.80 1.4-6.5 K/uL Lymphocytes # (Auto) 2.01 1.2-3.4 K/uL Monocytes # (Auto) 0.61 0.11-0.59 K/uL Eosinophils # (Auto) 0.33 0-0.5 K/uL Basophils # (Auto) 0.04 0-0.2 K/uL RDW Standard Deviation 43.9 36.4-46.3 fL RDW Coefficient of Variation 12.7 11.5-14.5 % Immature Granulocyte % (Auto) 0.1 % Immature Granulocyte # (Auto) 0.01 0.00-0.02 K/uL Prothrombin Time 10.6 9.0-12.0 SECONDS Prothromb Time International Ratio 1.0 0.9-1.1 D-Dimer 580 0-500 ug/L FEU Sodium Level 141 136-145 mmol/L Potassium Level 3.7 3.5-5.1 mmol/L Chloride Level 105 98-107 mmol/L Carbon Dioxide Level 26 21-32 mmol/L Anion Gap 10.0 3-11 mmol/L Blood Urea Nitrogen 22 7-18 mg/dl Creatinine 0.89 0.60-1.20 mg/dl Est Creatinine Clear Calc Drug Dose 44.3 ml/min Estimated GFR () 70.0 Estimated GFR (Non- 60.4 BUN/Creatinine Ratio 24.2 10-20 Random Glucose 137 70-99 mg/dl Calcium Level 9.2 8.5-10.1 mg/dl Magnesium Level 2.1 1.8-2.4 mg/dl Total Bilirubin 0.4 0.2-1 mg/dl Aspartate Amino Transf (AST/SGOT) 15 15-37 U/L Alanine Aminotransferase (ALT/SGPT) 23 12-78 U/L Alkaline Phosphatase 78 45-117 U/L Troponin I < 0.015 1.250 0-0.045 ng/ml Pro-B-Type Natriuretic Peptide 232 0-1800 pg/ml Total Protein 7.6 6.4-8.2 gm/dl Albumin 3.7 3.4-5.0 gm/dl Globulin 3.9 2.5-4.0 gm/dl Albumin/Globulin Ratio 0.9 0.9-2 Lipase 214 73-393 U/L Thyroid Stimulating Hormone (TSH) 5.160 0.300-4.500 uIu/ml Free Thyroxine 1.14 0.80-1.60 ng/dl Urine Color YELLOW Urine Appearance CLEAR CLEAR Urine pH 7.5 4.5-7.5 Urine Specific [place] 1.012 1.000-1.030 Urine Protein NEG NEG Urine Glucose (UA) NEG NEG Urine Ketones NEG NEG Urine Occult Blood NEG NEG Urine Nitrite NEG NEG Urine Bilirubin NEG NEG Urine Urobilinogen NEG NEG Urine Leukocyte Esterase NEG NEG Creatine Kinase MB 6.5 0.5-3.6 ng/ml Creatine Kinase MB Ratio 0-3.0
[2017-01-20 19:34] VITALS: BP 129/61; PULSE 63; TEMP 37; O2SAT 93
[2017-01-20] MEDS ORDERED: HEPARIN 25,000 UNIT/500ML D5W 500 ML IV PRN (21:30)
[2017-01-20] MEDS: ROSUVASTATIN CALCIUM 5 MG TAB PO SCH (21:33)
[2017-01-20 21:37] LABS: PARTIAL THROMBOPLASTIN RATIO 1.1; PROTHROMBIN TIME (PATIENT) 10.7 SECONDS (9.0-12.0)
[2017-01-20] MEDS: DOCUSATE SODIUM 100 MG CAP PO PRN (21:56)
[2017-01-20 23:43] VITALS: BP 127/58; PULSE 64; TEMP 37.2; O2SAT 93
[2017-01-21] VITALS (18 sets, daily range): BP systolic 136–167; BP diastolic 62–74; PULSE 59–72; TEMP 36.4–36.9; O2SAT 94–97
[2017-01-21] MEDS: NITROGLYCERIN OINT 2% 1GM PACKET EXT SCH ×4 (03:42→20:55)
[2017-01-21 04:27] LABS: BASO % 0.5 %; BASO ABS # 0.04 K/uL (0-0.2); COMPLETE YES; EOS % 2.2 %; HEMATOCRIT 32.8 % (37-47); IG% 0.1 %; LYMPH % 21.3 %; LYMPH ABS # 1.75 K/uL (1.2-3.4); MEAN CELL VOLUME 94.3 fL (80-100); MEAN CORPUSCULAR HEMOGLOBIN 32.5 pg (25-34); MEAN CORPUSCULAR HGB CONC 34.5 g/dl (32-36); MEAN PLATELET VOLUME 10.1 fL (7.4-10.4); MONO % 6.9 %; PLATELET COUNT 236 K/uL (130-400); RED BLOOD COUNT 3.48 M/uL (4.2-5.4); WHITE BLOOD COUNT 8.21 K/uL (4.8-10.8)
[2017-01-21 04:29] LABS: PARTIAL THROMBOPLASTIN RATIO 2.6
[2017-01-21 04:31] LABS: BUN/CREATININE RATIO 25.8 (10-20); CALCIUM 8.1 mg/dl (8.5-10.1); CREATININE 0.76 mg/dl (0.60-1.20); POTASSIUM 3.9 mmol/L (3.5-5.1)
[2017-01-21 04:42] LABS: CHOLESTEROL/HDL RATIO 2.8; THYROID STIMULATING HORMONE 1.63 uIu/ml (0.300-4.500)
[2017-01-21] MEDS: PANTOprazole SOD 40 MG TAB PO SCH ×2 (08:36→20:48)
[2017-01-21] MEDS: MULTIVITAMIN TAB PO SCH (08:37)
[2017-01-21] MEDS: CHOLECALCIFEROL 1000 INTER.UNIT TAB PO SCH (08:37)
[2017-01-21] MEDS: DILTIAZEM HCL 120 MG EXT REL CAP PO SCH (08:38)
[2017-01-21] MEDS: LOSARTAN POTASSIUM 50 MG TAB PO SCH (08:39)
[2017-01-21] MEDS: CLOPIDOGREL BISULFATE 75 MG TAB PO SCH (08:44)
[2017-01-21] MEDS ORDERED: HEPARIN SOD (PORCINE) 1000 UNIT/ML 10 ML VIAL ONE (08:54)
[2017-01-21] MEDS ORDERED: FENTANYL CITRATE INJ 50 MCG/1 ML 2 ML VIAL ONE (08:54)
[2017-01-21] MEDS ORDERED: NiCARDipine HCL INJ 2.5 MG/ML 10 ML AMP ONE (08:54)
[2017-01-21] MEDS ORDERED: MIDAZOLAM HCL 1 MG/ML 2ML VIAL ONE (08:54)
[2017-01-21] MEDS ORDERED: NITROGLYCERIN/D5W 100MCG/ML 20ML SYR ONE (08:55)
[2017-01-21] MEDS ORDERED: DC ALL ANTICOAGULANTS ONE (09:15)
--- NOTE | 2017-01-21 10:37 | Procedure Note ---
Pre-Mod Sedation Assessment General Date of Moderate Sedation: Jan 21, 2017. Vital Signs: Vital Signs Past 12 Hours Date Time Temp Pulse Resp B/P (MAP) Pulse Ox O2 Delivery O2 Flow Rate FiO2 01/21/17 10:24 60 12 179/82 (114) 95 Room Air 01/21/17 08:49 36.8 18 151/66 94 Room Air 01/21/17 08:38 36.6 59 16 167/62 (97) 95 Room Air 01/21/17 08:00 Room Air 01/21/17 04:07 36.8 64 18 151/66 (94) 94 Room Air 01/21/17 04:00 Room Air 01/20/17 23:59 Room Air 01/20/17 23:43 37.2 64 16 127/58 (81) 93 Room Air Review Cardiovascular: regular rate, rhythm Abdomen: normal bowel sounds Lungs: lungs clear Airway Class: I Pre-Sedation Airway Assessment Oral Cavity: Capped Teeth Able to Visualize Vocal Cords: No Short Thick Neck: No Hx of Sleep Apnea: No Smoking Status: Never Smoker Mallampati Classification: Class I (Sft palate,uvula,fauces,pillar) ASA Classification: Class I Procedure Planning Contraindications-for Mod Sed: None Yes Notes The planned sedation has been discussed with the patient and consent obtained. I have identified the patient, determined the appropriateness of sedation and have assessed the patient immediately prior to the procedure. All medicine(s) and interventions are by my order.
--- NOTE | 2017-01-21 10:37 | Procedure Note ---
Post-Mod Sedation Assessment General Date of Moderate Sedation Jan 21, 2017. Vital Signs: Vital Signs Past 12 Hours Date Time Temp Pulse Resp B/P (MAP) Pulse Ox O2 Delivery O2 Flow Rate FiO2 01/21/17 10:24 60 12 179/82 (114) 95 Room Air 01/21/17 08:49 36.8 18 151/66 94 Room Air 01/21/17 08:38 36.6 59 16 167/62 (97) 95 Room Air 01/21/17 08:00 Room Air 01/21/17 04:07 36.8 64 18 151/66 (94) 94 Room Air 01/21/17 04:00 Room Air 01/20/17 23:59 Room Air 01/20/17 23:43 37.2 64 16 127/58 (81) 93 Room Air Review - Discharge Criteria Vital Signs Stable: Yes Alert/Oriented/Conversant: Yes Returned to Baseline Mental St: Yes Nausea Absent/Minimal: Yes Pain/Discomfort/Absent/Minimal: Yes Normal/Baseline Respirations: Yes Active Bleeding?: No Pt Received D/C Instructions: Yes Specific Proced. D/C Criteria Distal Pulses Present (Cardiac: Yes Groin site assessed-Card Cath: Yes Voided Prior To Discharge: Yes Discharged Patients Adult Escort/Transportation: Yes
[2017-01-21] MEDS ORDERED: HydrALAZINE HCL 20 MG/ML VIAL ONE (10:43)
--- NOTE | 2017-01-21 10:53 | Cardiac Catheterization ---
Procedure Note Procedure Date Jan 21, 2017. Pre-Procedure Diagnosis Non STEMI AUC Score 9 Post-Procedure Diagnosis Severe CAD Procedure(s) Performed Coronary Angiography, Left Heart Cath, LV Angiography Toe Stapler Dr. 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 Data Cardiac Status Clinical evaluation leading to the procedure CAD Presntation: Non STEMI Anginal Classification: CCS II Heart Failure: No Cardiogenic Shock w/in 24Hrs: No Cardiac Arrest w/in 24Hrs: No Imaging studies past 6 months: Yes Stress studies past 6 months: No Coronary Anatomy Dominant: Left Left Main (% Stenosis): Normal LAD (% Stenosis): Proximal (50), Mid (50), Distal (95) Circumflex (% Stenosis): Mid (80) RCA (% Stenosis): Mid (80) Left Ventricular Angiography EF (%): 60 Diagnostic Status: Urgent Closure Device Percutaneous Entry Location: Femoral Closure Device: Mynx Recommendations: Medical therapy and/or Counseling
[2017-01-21] MEDS ORDERED: SODIUM CHLORIDE 0.9% 1000ML 250 ML IV PRN (10:56)
[2017-01-21] MEDS ORDERED: ONDANSETRON INJ 2 MG/ML 2 ML VIAL IV PRN (11:00)
[2017-01-21] MEDS ORDERED: ACETAMINOPHEN 325 MG TAB PO PRN (11:00)
[2017-01-21] MEDS ORDERED: ATROPINE SULFATE 0.1 MG/ML 5ML SYR IV PRN (11:00)
[2017-01-21] MEDS: SODIUM CHLORIDE 0.9% 1000ML 1,000 ML IV SCH ×4 (11:35→23:43)
[2017-01-21] MEDS ORDERED: AMLODIPINE BESYLATE 5 MG TAB PO ONE (12:30)
--- NOTE | 2017-01-21 16:20 | Progress Note ---
Internal Med Progress Note Date of Service: Jan 21, 2017. Provider Documentation: resting comfortably. denies any chest pain or sob. no cough afebrile awaiting cardiac cath( at the time of my exam) exam: General-alert and awake. Not in distress ENT-normal hearing Neck-no neck masses Lungs-cta b/l no wheezing present no crackles Heart-s1 and s2 heard regular rate and rhythm no murmurs Abdomen-soft bowel sounds present non tender no distension Extremities-no erythema no edema Neuro-alert and awake moves extremities ASSESSMENT & PLAN: Chest Pain: NSTEMI on iv heparin, b weston, plavix and stain s/p cardiac cath- has lesions not amenable for stenting CABG vs medical management as er cardiology discussions with patient Hypertensive Urgency: improved currently on atenolol, Norvasc and losartan will monitor Elevated D-dimer: CTA chest and venous Doppler negative study Elevated TSH: normal T4 H/O CVA: continue plavix, statins GERD: continue PPI HLP: continue statins DVT Px: Heparin SQ DISPOSITION monitor in tele to be determined Vital Signs: Date Time Temp Pulse Resp B/P (MAP) Pulse Ox O2 Delivery O2 Flow Rate FiO2 01/21/17 15:52 36.9 61 18 142/73 (96) 94 Room Air 01/21/17 14:45 68 16 136/64 (88) 96 Room Air 01/21/17 13:45 65 16 138/74 (95) 96 Room Air 01/21/17 13:16 36.6 16 138/71 (93) 95 Room Air 01/21/17 12:50 69 18 142/72 (95) 94 Room Air 01/21/17 12:20 65 18 146/68 (94) 96 Room Air 01/21/17 12:05 69 18 148/67 (94) 96 Room Air 01/21/17 12:00 Room Air 01/21/17 11:50 67 18 137/69 (91) 96 Room Air 01/21/17 11:35 68 18 151/73 (99) 95 Room Air 01/21/17 11:20 69 18 149/69 (95) 95 Room Air 01/21/17 11:05 36.4 65 16 147/71 (96) 96 Room Air 01/21/17 10:45 57 16 168/79 (108) Room Air 01/21/17 10:35 58 16 179/79 (112) 95 Room Air 01/21/17 10:24 60 12 179/82 (114) 95 Room Air 01/21/17 08:49 36.8 18 151/66 94 Room Air 01/21/17 08:38 36.6 59 16 167/62 (97) 95 Room Air 01/21/17 08:00 Room Air 01/21/17 04:07 36.8 64 18 151/66 (94) 94 Room Air 01/21/17 04:00 Room Air 01/20/17 23:59 Room Air 01/20/17 23:43 37.2 64 16 127/58 (81) 93 Room Air 01/20/17 20:00 Room Air 01/20/17 19:34 37.0 63 18 129/61 (83) 93 Room Air Lab Results: Results Past 24 Hours Test 01/20/17 19:06 01/20/17 19:16 01/20/17 21:18 01/21/17 01:09 Range/Units Creatine Kinase MB Ratio 0-3.0 Creatine Kinase MB 9.7 7.2 0.5-3.6 ng/ml Troponin I 3.160 2.380 0-0.045 ng/ml Prothrombin Time 10.7 9.0-12.0 SECONDS Prothromb Time International Ratio 1.0 0.9-1.1 Activated Partial Thromboplast Time 28.7 21.0-31.0 SECONDS Partial Thromboplastin Ratio 1.1 Test 01/21/17 03:54 01/21/17 07:06 01/21/17 07:29 Range/Units White Blood Count 8.21 4.8-10.8 K/uL Red Blood Count 3.48 4.2-5.4 M/uL Hemoglobin 11.3 12.0-16.0 g/dL Hematocrit 32.8 37-47 % Mean Corpuscular Volume 94.3 80-100 fL Mean Corpuscular Hemoglobin 32.5 25-34 pg Mean Corpuscular Hemoglobin Concent 34.5 32-36 g/dl Platelet Count 236 130-400 K/uL Mean Platelet Volume 10.1 7.4-10.4 fL Neutrophils (%) (Auto) 69.0 % Lymphocytes (%) (Auto) 21.3 % Monocytes (%) (Auto) 6.9 % Eosinophils (%) (Auto) 2.2 % Basophils (%) (Auto) 0.5 % Neutrophils # (Auto) 5.66 1.4-6.5 K/uL Lymphocytes # (Auto) 1.75 1.2-3.4 K/uL Monocytes # (Auto) 0.57 0.11-0.59 K/uL Eosinophils # (Auto) 0.18 0-0.5 K/uL Basophils # (Auto) 0.04 0-0.2 K/uL RDW Standard Deviation 45.3 36.4-46.3 fL RDW Coefficient of Variation 13.1 11.5-14.5 % Immature Granulocyte % (Auto) 0.1 % Immature Granulocyte # (Auto) 0.01 0.00-0.02 K/uL Activated Partial Thromboplast Time 66.3 21.0-31.0 SECONDS Partial Thromboplastin Ratio 2.6 Sodium Level 141 136-145 mmol/L Potassium Level 3.9 3.5-5.1 mmol/L Chloride Level 107 98-107 mmol/L Carbon Dioxide Level 27 21-32 mmol/L Anion Gap 7.0 3-11 mmol/L Blood Urea Nitrogen 20 7-18 mg/dl Creatinine 0.76 0.60-1.20 mg/dl Est Creatinine Clear Calc Drug Dose 50.1 ml/min Estimated GFR () 84.7 Estimated GFR (Non- 73.1 BUN/Creatinine Ratio 25.8 10-20 Random Glucose 117 70-99 mg/dl Calcium Level 8.1 8.5-10.1 mg/dl Triglycerides Level 93 0-150 mg/dl Cholesterol Level 134 0-200 mg/dl HDL Cholesterol 48 mg/dl LDL Cholesterol, Calculated 67 mg/dl VLDL Cholesterol, Calculated 19 mg/dl Cholesterol/HDL Ratio 2.8 Thyroid Stimulating Hormone (TSH) 1.630 0.300-4.500 uIu/ml Creatine Kinase MB Ratio 0-3.0 Creatine Kinase MB 5.7 0.5-3.6 ng/ml Troponin I 2.100 0-0.045 ng/ml
[2017-01-21] MEDS: ROSUVASTATIN CALCIUM 5 MG TAB PO SCH (20:48)
[2017-01-21] MEDS: HEPARIN SOD 5000 UNIT/0.5 ML CARP SQ SCH (20:55)
[2017-01-22] VITALS (8 sets, daily range): BP systolic 103–184; BP diastolic 55–78; PULSE 60–75; TEMP 36.6–36.9; O2SAT 92–97
[2017-01-22] MEDS: NITROGLYCERIN OINT 2% 1GM PACKET EXT SCH ×5 (03:29→22:08)
[2017-01-22] MEDS: HEPARIN SOD 5000 UNIT/0.5 ML CARP SQ SCH ×2 (05:50→14:17)
[2017-01-22 06:22] LABS: BASO % 0.6 %; BASO ABS # 0.04 K/uL (0-0.2); COMPLETE YES; EOS % 5.2 %; HEMATOCRIT 35.7 % (37-47); IG% 0.2 %; LYMPH ABS # 1.47 K/uL (1.2-3.4); MEAN CELL VOLUME 94.4 fL (80-100); MEAN CORPUSCULAR HEMOGLOBIN 31.2 pg (25-34); MEAN CORPUSCULAR HGB CONC 33.1 g/dl (32-36); MONO % 9.7 %; NEUT % 61.3 %; PLATELET COUNT 265 K/uL (130-400); RED BLOOD COUNT 3.78 M/uL (4.2-5.4); WHITE BLOOD COUNT 6.39 K/uL (4.8-10.8)
[2017-01-22 06:30] LABS: PARTIAL THROMBOPLASTIN RATIO 1.2
[2017-01-22 06:53] LABS: BUN/CREATININE RATIO 16.3 (10-20); CALCIUM 8.6 mg/dl (8.5-10.1); CREATININE 0.71 mg/dl (0.60-1.20); POTASSIUM 3.5 mmol/L (3.5-5.1)
[2017-01-22] MEDS: MULTIVITAMIN TAB PO SCH (07:51)
[2017-01-22] MEDS: PANTOprazole SOD 40 MG TAB PO SCH ×2 (07:51→20:56)
[2017-01-22] MEDS: LOSARTAN POTASSIUM 50 MG TAB PO SCH (07:51)
[2017-01-22] MEDS: CLOPIDOGREL BISULFATE 75 MG TAB PO SCH (07:52)
[2017-01-22] MEDS: AMLODIPINE BESYLATE 5 MG TAB PO SCH (07:52)
[2017-01-22] MEDS: CHOLECALCIFEROL 1000 INTER.UNIT TAB PO SCH (07:53)
--- NOTE | 2017-01-22 09:53 | CARDIOLOGY PROGRESS NOTE ---
DATE: 01/22/2017 FOLLOW-UP VISIT DATE: 01/22/2017 SUBJECTIVE: This is an 81-year-old female who presented with chest pain and had a non-STEMI infarct. Yesterday I performed a cardiac catheterization. She has a left dominant system. Her arteries are heavily calcified, which is not unexpected given her age. She has a long segment of distal LAD with a high grade stenosis. I do not believe that this is amenable to coronary intervention due to the proximal calcium in the vessel as well as the small caliber of the distal LAD. Her circumflex artery also has a high grade stenosis in it, but I believe it would also be high risk intervention due to heavy calcium. Her best options I believe are either total revascularization with open heart surgery and bypass versus medical therapy. I presented these options to the patient in the presence of her and I also discussed it with her daughter by phone. The patient does not want to have any surgery. She would rather try medical therapy. I believe that this is not a bad choice by the patient. We will bump up her medications and I believe we need to improve her blood pressure. She will remain on Plavix and aspirin as an outpatient. She should be ambulated today and then we will reevaluate her tomorrow. OBJECTIVE: VITAL SIGNS: Blood pressure is 162/77, pulse is regular at 60 beats per minute. GENERAL: She is afebrile. HEAD, EYES, EARS, NOSE, AND THROAT: She is normocephalic. Pupils are equal and reactive to light. Extraocular muscles are intact bilaterally. NECK: The neck veins are flat. Carotids have good upstrokes bilaterally without bruits. Thyroid is nonpalpable. RESPIRATORY: Breath sounds equal bilaterally and clear to auscultation. CARDIOVASCULAR: Heart has a regular rhythm. Normal S1, S2. No S3, S4. No cardiac rubs or murmurs. GASTROINTESTINAL: Abdomen is soft, nontender without organomegaly. EXTREMITIES: Free of edema, digit clubbing, or cyanosis. NEUROLOGIC: Grossly intact. SKIN: Warm to touch. LYMPH NODES: Negative to palpation. LABORATORY DATA: Hemoglobin is 11.8. Potassium is 3.5, creatinine is 0.71. IMPRESSION: 1. Non-ST elevation myocardial infarction. 2. Significant 2-vessel coronary artery disease. 3. Hypertension. RECOMMENDATIONS: As outlined above, the patient would rather try medical therapy. She will stay on dual antiplatelet therapy. We need to manage her blood pressure better and I would like to see her systolic blood pressure below 130 if possible. She should be ambulated today and we will reevaluate her tomorrow.
--- NOTE | 2017-01-22 17:04 | Progress Note ---
Internal Med Progress Note Date of Service: Jan 22, 2017. Provider Documentation: resting comfortably. no chest pain or sob afebrile no nausea no complaints exam: General-alert and awake. Not in distress ENT-normal hearing Neck-no neck masses Lungs-cta b/l no wheezing present no crackles Heart-s1 and s2 heard regular rate and rhythm no murmurs Abdomen-soft bowel sounds present non tender no distension Extremities-no erythema no edema Neuro-alert and awake moves extremities ASSESSMENT & PLAN: Chest Pain: NSTEMI on iv heparin, b weston, plavix and stain s/p cardiac cath- has lesions not amenable for stenting CABG vs medical management as er cardiology discussions with patient patient decided for medical management Hypertensive Urgency: improved currently on atenolol, Norvasc and losartan will d/w cardiology for meds adjustments Elevated D-dimer: CTA chest and venous Doppler negative study Elevated TSH: normal T4 H/O CVA: continue plavix, statins GERD: continue PPI HLP: continue statins DVT Px: Heparin SQ DISPOSITION monitor in tele ambulate in champion ways possible d/c in 1-2 days Vital Signs: Date Time Temp Pulse Resp B/P (MAP) Pulse Ox O2 Delivery O2 Flow Rate FiO2 01/22/17 16:00 Room Air 01/22/17 15:25 36.7 66 18 156/77 (103) 97 Room Air 01/22/17 12:00 Room Air 01/22/17 11:46 36.6 64 20 160/78 (105) 96 Room Air 01/22/17 08:05 36.8 60 16 162/77 (105) 95 Room Air 01/22/17 08:00 Room Air 01/22/17 04:00 Room Air 01/22/17 03:33 36.8 62 19 157/55 (89) 93 Room Air 01/21/17 23:59 Room Air 01/21/17 23:41 36.5 63 19 145/67 (93) 94 Room Air 01/21/17 20:00 Room Air 01/21/17 19:28 36.9 68 18 165/72 (103) 96 Room Air Lab Results: Results Past 24 Hours Test 01/22/17 06:02 Range/Units White Blood Count 6.39 4.8-10.8 K/uL Red Blood Count 3.78 4.2-5.4 M/uL Hemoglobin 11.8 12.0-16.0 g/dL Hematocrit 35.7 37-47 % Mean Corpuscular Volume 94.4 80-100 fL Mean Corpuscular Hemoglobin 31.2 25-34 pg Mean Corpuscular Hemoglobin Concent 33.1 32-36 g/dl Platelet Count 265 130-400 K/uL Mean Platelet Volume 10.0 7.4-10.4 fL Neutrophils (%) (Auto) 61.3 % Lymphocytes (%) (Auto) 23.0 % Monocytes (%) (Auto) 9.7 % Eosinophils (%) (Auto) 5.2 % Basophils (%) (Auto) 0.6 % Neutrophils # (Auto) 3.92 1.4-6.5 K/uL Lymphocytes # (Auto) 1.47 1.2-3.4 K/uL Monocytes # (Auto) 0.62 0.11-0.59 K/uL Eosinophils # (Auto) 0.33 0-0.5 K/uL Basophils # (Auto) 0.04 0-0.2 K/uL RDW Standard Deviation 45.4 36.4-46.3 fL RDW Coefficient of Variation 13.1 11.5-14.5 % Immature Granulocyte % (Auto) 0.2 % Immature Granulocyte # (Auto) 0.01 0.00-0.02 K/uL Activated Partial Thromboplast Time 30.1 21.0-31.0 SECONDS Partial Thromboplastin Ratio 1.2 Sodium Level 141 136-145 mmol/L Potassium Level 3.5 3.5-5.1 mmol/L Chloride Level 108 98-107 mmol/L Carbon Dioxide Level 26 21-32 mmol/L Anion Gap 7.0 3-11 mmol/L Blood Urea Nitrogen 12 7-18 mg/dl Creatinine 0.71 0.60-1.20 mg/dl Est Creatinine Clear Calc Drug Dose 53.8 ml/min Estimated GFR () 91.9 Estimated GFR (Non- 79.3 BUN/Creatinine Ratio 16.3 10-20 Random Glucose 104 70-99 mg/dl Calcium Level 8.6 8.5-10.1 mg/dl
[2017-01-22] MEDS ORDERED: AMLODIPINE BESYLATE 5 MG TAB PO ONE (18:30)
[2017-01-22] MEDS ORDERED: HEPARIN IV BOLUS 4,000 UNIT in SYRINGE 0 ML IV ONE (20:30)
[2017-01-22] MEDS: HEPARIN 25,000 UNIT/500ML D5W 500 ML IV PRN (20:41)
[2017-01-22] MEDS: ROSUVASTATIN CALCIUM 5 MG TAB PO SCH (20:55)
[2017-01-22] MEDS: DOCUSATE SODIUM 100 MG CAP PO PRN (20:58)
[2017-01-23] VITALS (8 sets, daily range): BP systolic 93–134; BP diastolic 60–67; PULSE 61–120; TEMP 36.5–36.9; O2SAT 94–95
[2017-01-23 03:42] LABS: PARTIAL THROMBOPLASTIN RATIO 8.3
[2017-01-23] MEDS: NITROGLYCERIN OINT 2% 1GM PACKET EXT SCH ×2 (03:53→10:09)
[2017-01-23 06:15] LABS: PARTIAL THROMBOPLASTIN RATIO 4.2
[2017-01-23 06:58] LABS: PARTIAL THROMBOPLASTIN RATIO 2.7
[2017-01-23] MEDS: HEPARIN 25,000 UNIT/500ML D5W 500 ML IV PRN (07:29)
[2017-01-23 08:05] LABS: BASO % 0.7 %; BASO ABS # 0.05 K/uL (0-0.2); COMPLETE YES; EOS % 5.4 %; HEMATOCRIT 33.4 % (37-47); IG% 0.1 %; LYMPH % 28.7 %; LYMPH ABS # 2.18 K/uL (1.2-3.4); MEAN CELL VOLUME 94.1 fL (80-100); MEAN CORPUSCULAR HEMOGLOBIN 31.5 pg (25-34); MEAN CORPUSCULAR HGB CONC 33.5 g/dl (32-36); MEAN PLATELET VOLUME 10.6 fL (7.4-10.4); MONO % 9.3 %; NEUT % 55.8 %; PLATELET COUNT 265 K/uL (130-400); RED BLOOD COUNT 3.55 M/uL (4.2-5.4)
[2017-01-23] MEDS: AMLODIPINE BESYLATE 5 MG TAB PO SCH (08:09)
[2017-01-23] MEDS: CHOLECALCIFEROL 1000 INTER.UNIT TAB PO SCH (08:09)
[2017-01-23] MEDS: MULTIVITAMIN TAB PO SCH (08:10)
[2017-01-23] MEDS: PANTOprazole SOD 40 MG TAB PO SCH (08:10)
[2017-01-23] MEDS: CLOPIDOGREL BISULFATE 75 MG TAB PO SCH (08:10)
[2017-01-23] MEDS: LOSARTAN POTASSIUM 50 MG TAB PO SCH (08:10)
[2017-01-23] MEDS: DOCUSATE SODIUM 100 MG CAP PO PRN (08:15)
[2017-01-23 08:56] LABS: BUN/CREATININE RATIO 21.4 (10-20); CALCIUM 8.4 mg/dl (8.5-10.1); CREATININE 0.76 mg/dl (0.60-1.20); POTASSIUM 3.9 mmol/L (3.5-5.1)
[2017-01-23] MEDS ORDERED: NRV5 PO (11:43)
--- NOTE | 2017-01-23 11:46 | Discharge Instructions ---
Discharge Instructions Date of Service Jan 23, 2017. Admission Reason for Admission: Chest Pain Discharge Discharge Diagnosis / Problem: NSTEMI,uncontrolled htn Discharge Goals Goal(s): Decrease discomfort, Increase independence Activity Recommendations Activity Level: Up Ad Malena . Additional Information Patient informed of condition: Yes Advance Directives: Yes DNR: No Level of Care: Other ([facility]) Communicable Disease: No Prognosis: Other (TRANSFERING TO [facility]) [place] Catheter: No Instructions / Follow-Up Instructions / Follow-Up FOLLOWUP PER [place] RECOMMENDATIONS Current Hospital Diet Patient's current hospital diet: AHA Diet (Heart Healthy) Discharge Diet Recommended Diet: AHA Diet (Heart Healthy) Pending Studies Studies pending at discharge: no Physician Orders On Transfer Special Precautions: FALL AND ASPIRATION PRECAUTIONS IV Therapy: IV HEPARIN Vital Signs: EVERY 8HRS Additional Orders: PLEASE CHECK MEDICATION RECONCILIATION FOR ACCURATE MED LIST Laboratory Results Lipid Panel Test 01/21/17 03:54 Range/Units Triglycerides Level 93 0-150 mg/dl Cholesterol Level 134 0-200 mg/dl HDL Cholesterol 48 mg/dl Cholesterol/HDL Ratio 2.8 LDL Cholesterol, Calculated 67 mg/dl Medical Emergencies . Who to Call and When: Medical Emergencies: If at any time you feel your situation is an emergency, please call 911 immediately. . Non-Emergent Contact Non-Emergency issues call your: Primary Care Provider . . "Provider Documentation" section prepared by Dav Garcia. . Core Measure Problem Core Measures: None
--- NOTE | 2017-01-23 11:51 | Progress Note ---
Internal Med Progress Note Date of Service: Jan 23, 2017. Provider Documentation: patient had chest pain again after ambulating and it subsided with iv morphine and rewst cardiology restarted iv heparin since then no more chest pains or sob afebrile hemodynamics stable cardiology d/w patient again about CABG as patinet getting symptoms with exertion and patient this time agreed for surgery and ok for transferring to [place]. exam: General-alert and awake. Not in distress ENT-normal hearing Neck-no neck masses Lungs-cta b/l no wheezing present no crackles Heart-s1 and s2 heard regular rate and rhythm no murmurs Abdomen-soft bowel sounds present non tender no distension Extremities-no erythema no edema Neuro-alert and awake moves extremities ASSESSMENT & PLAN: Chest Pain: NSTEMI on iv heparin, b weston, plavix and stain s/p cardiac cath- has lesions in circumflex, LAD and RCA not amenable for stenting CABG vs medical management as per cardiology discussions with patient Initially patient decided for medical management but patient again developed chest pain with ambulation yesterday evening - was restarted on iv heparin Today morning cardiology again discussed about CABG and patient agreed also started on nitro paste Transferring to [place] for cardiac surgery Hypertensive Urgency: improved currently on atenolol, Norvasc and losartan agreed for nitro paste will d/w cardiology for meds adjustments Elevated D-dimer: CTA chest and venous Doppler negative study Elevated TSH: normal T4 H/O CVA: continue plavix, statins GERD: continue PPI HLP: continue statins Transferring to [place] for CABG Vital Signs: Date Time Temp Pulse Resp B/P (MAP) Pulse Ox O2 Delivery O2 Flow Rate FiO2 01/23/17 10:08 67 121/67 (85) 01/23/17 08:00 Room Air 01/23/17 07:38 36.8 61 16 121/61 (81) 95 Room Air 01/23/17 04:00 95 Room Air 01/23/17 03:13 36.9 68 18 134/63 (86) 95 Room Air 01/23/17 00:01 95 Room Air 01/22/17 23:11 36.9 66 19 103/57 (72) 95 Room Air 01/22/17 20:00 Room Air 01/22/17 19:45 36.7 68 18 125/69 (87) 92 Room Air 01/22/17 18:02 68 167/69 (101) 95 Room Air 01/22/17 17:45 75 184/70 (108) 95 Room Air 01/22/17 16:00 Room Air 01/22/17 15:25 36.7 66 18 156/77 (103) 97 Room Air 01/22/17 12:00 Room Air Lab Results: Results Past 24 Hours Test 01/22/17 18:48 01/23/17 02:56 01/23/17 05:16 01/23/17 06:31 Range/Units Troponin I 0.673 0.742 0-0.045 ng/ml Activated Partial Thromboplast Time 218.7 108.1 70.3 21.0-31.0 SECONDS Partial Thromboplastin Ratio 8.3 4.2 2.7 White Blood Count 7.60 4.8-10.8 K/uL Red Blood Count 3.55 4.2-5.4 M/uL Hemoglobin 11.2 12.0-16.0 g/dL Hematocrit 33.4 37-47 % Mean Corpuscular Volume 94.1 80-100 fL Mean Corpuscular Hemoglobin 31.5 25-34 pg Mean Corpuscular Hemoglobin Concent 33.5 32-36 g/dl Platelet Count 265 130-400 K/uL Mean Platelet Volume 10.6 7.4-10.4 fL Neutrophils (%) (Auto) 55.8 % Lymphocytes (%) (Auto) 28.7 % Monocytes (%) (Auto) 9.3 % Eosinophils (%) (Auto) 5.4 % Basophils (%) (Auto) 0.7 % Neutrophils # (Auto) 4.24 1.4-6.5 K/uL Lymphocytes # (Auto) 2.18 1.2-3.4 K/uL Monocytes # (Auto) 0.71 0.11-0.59 K/uL Eosinophils # (Auto) 0.41 0-0.5 K/uL Basophils # (Auto) 0.05 0-0.2 K/uL RDW Standard Deviation 44.8 36.4-46.3 fL RDW Coefficient of Variation 12.9 11.5-14.5 % Immature Granulocyte % (Auto) 0.1 % Immature Granulocyte # (Auto) 0.01 0.00-0.02 K/uL Sodium Level 141 136-145 mmol/L Potassium Level 3.9 3.5-5.1 mmol/L Chloride Level 108 98-107 mmol/L Carbon Dioxide Level 26 21-32 mmol/L Anion Gap 7.0 3-11 mmol/L Blood Urea Nitrogen 16 7-18 mg/dl Creatinine 0.76 0.60-1.20 mg/dl Est Creatinine Clear Calc Drug Dose 49.5 ml/min Estimated GFR () 84.7 Estimated GFR (Non- 73.1 BUN/Creatinine Ratio 21.4 10-20 Random Glucose 97 70-99 mg/dl Calcium Level 8.4 8.5-10.1 mg/dl
--- NOTE | 2017-01-23 12:00 | Discharge Summary ---
Discharge Summary Date of Service Jan 23, 2017. 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 Motion degraded examination. 2. There is no evidence of pulmonary embolus in the main, lobar, or segmental pulmonary arteries. 3. There is no airspace consolidation or pleural effusion. 4. Cardiomegaly. 5. There is an age indeterminant superior endplate compression deformity of L1, new from 2013. LOWER EXTREMITY VENOUS DOPPLER: No evidence of lower extremity DVT. ECHO: * There is moderate concentric left ventricular hypertrophy. * Left ventricular systolic function is normal. * Ejection Fraction = 65-70%. * The left ventricular wall motion is normal. * The right ventricular systolic function is normal. * Grade I diastolic dysfunction, (abnormal relaxation pattern). * S/P CARDIAC CATH: Coronary Anatomy Dominant: Left Left Main (% Stenosis): Normal LAD (% Stenosis): Proximal (50), Mid (50), Distal (95) Circumflex (% Stenosis): Mid (80) RCA (% Stenosis): Mid (80) Left Ventricular Angiography EF (%): 60 Diagnostic Status: Urgent Closure Device Percutaneous Entry Location: Femoral Closure Device: Mynx Recommendations: Medical therapy and/or Counseling Consultations: CARDIOLOGY Medication Reconciliation New Medications: Amlodipine Besylate (Amlodipine Besylate) 5 Mg Tab 5 MG PO QAM, #30 TAB Continued Medications: Acetaminophen (Tylenol) 500 Mg Tab 500 MG PO Q6 PRN for MILD PAIN, TAB Atenolol (Tenormin) 25 Mg Tab 25 MG PO QPM, TAB Atenolol (Tenormin) 50 Mg Tab 50 MG PO QAM, TAB Biotin (Biotin 5000) 5 Mg Cap 1 CAP PO DAILY Cholecalciferol (Vitamin D3) 2,000 Unit Cap 1 CAP PO DAILY for 90 Days, #90 CAP 3 Refills Clopidogrel Bisulfate (Plavix) 75 Mg Tab 75 MG PO DAILY, TAB Docusate Sodium (Stool Softener) 100 Mg Tab 100 MG PO DIRECTED Losartan Potassium (Cozaar) 100 Mg Tab 100 MG PO DAILY, TAB Multivitamin (Multivitamin) Tab 1 TAB PO DAILY, TAB Omeprazole (Omeprazole) 20 Mg Tab 20 MG PO BID Rosuvastatin Calcium (Crestor) 5 Mg Tab 5 MG PO DAILY, TAB Discontinued Medications: Diltiazem Hcl Ext Rel (Tiazac) 120 Mg Capcr 120 MG PO DAILY, CAP Admission Information HPI (per Admitting provider): Patient is a 81 yr female with PMH of CVA, GERD, HLP, HTN, DDD and other problems presents with history of Intermittent chest pain since 1 week duration. Patient states chest pain is dull, across the chest, radiates to b/l upper arms, 2/10 intensity, which have been progressively worsening since yesterday. Received NTG in ED without much help. Reports associated nausea but denies vomiting. Reports chronic orthostatic lightheadedness since having had stroke in 2015. Also states having cough with yellowish expectoration. Patient presented with uncontrolled BP which improved with hydralazine. Admits to being non complaint with salt intake. Denies any history of SOB, wheezing, orthopnea, PND, leg swelling, abd pain, diarrhea, dysuria, palpitations, fever, chills, headache, change in vision. Physical Exam (per Admitting): General Appearance: WD/WN, no apparent distress Head: normocephalic, atraumatic Eyes: normal inspection, PERRL, EOMI, sclerae normal ENT: normal ENT inspection, hearing grossly normal Neck: supple, trachea midline Respiratory/Chest: chest non-tender, lungs clear, normal breath sounds, no respiratory distress, no accessory muscle use Cardiovascular: regular rate, rhythm, no edema, + systolic murmur Abdomen/GI: normal bowel sounds, non tender, soft Back: normal inspection Extremities/Musculoskelatal: normal inspection, no pedal edema Neurologic/Psych: director of academic support II-XII nml as tested, no motor/sensory deficits, alert , normal mood/affect, oriented x 3 Skin: normal color, warm/dry Hospital Course Chest Pain: NSTEMI on iv heparin, b weston, plavix and stain s/p cardiac cath- has lesions in circumflex, LAD and RCA not amenable for stenting CABG vs medical management as per cardiology discussions with patient Initially patient decided for medical management but patient again developed chest pain with ambulation yesterday evening - was restarted on iv heparin Today morning cardiology again discussed about CABG and patient agreed also started on nitro paste Transferring to [place] for cardiac surgery Hypertensive Urgency: improved currently on atenolol, Norvasc and losartan( DILTIAZEM CHANGED TO NORVASC BY CARDIOLOGY) agreed for nitro paste CURRENTLY BP OK 'WILL MONITOR Elevated D-dimer: CTA chest and venous Doppler negative study Elevated TSH: normal T4 H/O CVA: continue plavix, statins GERD: continue PPI HLP: continue statins Transferring to [place] for CABG Total time spent on discharge = 40MINUTES This includes examination of the patient, discharge planning, medication reconciliation, and communication with other providers. Discharge Instructions Discharge Instructions Date of Service Jan 23, 2017. Admission Reason for Admission: Chest Pain Discharge Discharge Diagnosis / Problem: NSTEMI,uncontrolled htn Discharge Goals Goal(s): Decrease discomfort, Increase independence Activity Recommendations Activity Level: Up Ad Malena . Additional Information Patient informed of condition: Yes Advance Directives: Yes DNR: No Level of Care: Other ([facility]) Communicable Disease: No Prognosis: Other (TRANSFERING TO [facility]) [place] Catheter: No Instructions / Follow-Up Instructions / Follow-Up FOLLOWUP PER [facility] RECOMMENDATIONS Current Hospital Diet Patient's current hospital diet: [facility] Diet (Heart Healthy) Discharge Diet Recommended Diet: AHA Diet (Heart Healthy) Pending Studies Studies pending at discharge: no Physician Orders On Transfer Special Precautions: FALL AND ASPIRATION PRECAUTIONS IV Therapy: IV HEPARIN Vital Signs: EVERY 8HRS Additional Orders: PLEASE CHECK MEDICATION RECONCILIATION FOR ACCURATE MED LIST Laboratory Results Lipid Panel Test 01/21/17 03:54 Range/Units Triglycerides Level 93 0-150 mg/dl Cholesterol Level 134 0-200 mg/dl HDL Cholesterol 48 mg/dl Cholesterol/HDL Ratio 2.8 LDL Cholesterol, Calculated 67 mg/dl Medical Emergencies . Who to Call and When: Medical Emergencies: If at any time you feel your situation is an emergency, please call 911 immediately. . Non-Emergent Contact Non-Emergency issues call your: Primary Care Provider . . "Provider Documentation" section prepared by Dav Garcia. . Core Measure Problem Core Measures: None
--- NOTE | 2017-01-23 12:06 | PROGRESS NOTE ---
DATE: 01/23/2017 FOLLOWUP VISIT SUBJECTIVE: The patient is an 81-year-old female who presented with chest pain and a non-STEMI infarct. She underwent a cardiac catheterization yesterday that shows significant 2-vessel disease in the left dominant system. Tuesday after talking with the patient, she did not want to consider surgery or intervention. She wanted medical treatment. Yesterday we took her off the heparin and allowed her to ambulate. She developed chest pain once again and was placed back on heparin. I once again discussed with the patient and her the need for some type of intervention, whether that is high risk angioplasty with stenting or coronary artery bypass. She is now agreeable to that plan and I have contacted the transfer center at [facility] and they are agreeable to transfer. She has had no chest pain since yesterday. OBJECTIVE: GENERAL: She is alert and oriented. VITAL SIGNS: Blood pressure is 160/70. Pulse is regular at 60 beats per minute. She is afebrile. HEENT: She is normocephalic. Pupils are equal and reactive to light. Extraocular muscles are intact bilaterally. NECK: The neck veins are flat. Carotids have good upstrokes bilaterally without bruits. Thyroid is nonpalpable. RESPIRATORY: Breath sounds equal bilaterally and clear to auscultation. CARDIOVASCULAR: Heart has a regular rhythm. Normal S1, S2. No S3, S4. No cardiac rubs or murmurs. GASTROINTESTINAL: Abdomen is soft, nontender without organomegaly. EXTREMITIES: Free of edema, digital clubbing, or cyanosis. NEUROLOGIC: Grossly intact. SKIN: Warm to touch. LYMPH NODES: Negative to palpation. IMPRESSION: 1. Non-ST segment elevation myocardial infarction. 2. Severe 2-vessel coronary artery disease. Remaining symptomatic with maximal medical therapy. 3. Hypertension. RECOMMENDATIONS: As outlined above, the patient is now agreeable to consider coronary intervention or bypass surgery. We will make arrangements for her to be transferred to [facility].
== END 2017-01-23 14:35 | disposition short-term general hospital (02) ==
LOC: EDBD 02:10 → C.EDB 02:11 → C.2T 07:12 → ENRESERV 07:29
PROVIDERS: ADMIT Internal Medicine; ATTEND Internal Medicine
DX: I21.4 Non-ST elevation (NSTEMI) myocardial infarction (principal); I12.9 Hypertensive chronic kidney disease with stage 1 through stage 4 chronic kidney disease, or unspecified chronic kidney disease; N18.3 Chronic kidney disease, stage 3 (moderate); E78.5 Hyperlipidemia, unspecified; I47.1 Supraventricular tachycardia; I47.2 Ventricular tachycardia; I25.10 Atherosclerotic heart disease of native coronary artery without angina pectoris; E11.9 Type 2 diabetes mellitus without complications; J45.909 Unspecified asthma, uncomplicated; K21.9 Gastro-esophageal reflux disease without esophagitis; Z79.899 Other long term (current) drug therapy; Z80.9 Family history of malignant neoplasm, unspecified; Z83.3 Family history of diabetes mellitus; Z82.49 Family history of ischemic heart disease and other diseases of the circulatory system

== ENCOUNTER 2021-08-20 15:50 | Observation (INO) ==
[2021-08-20] MEDS ORDERED: ASPIRIN CHEW 324 MG PO STA (16:09)
--- NOTE | 2021-08-20 16:13 | Emergency Department Note ---
Impression & Plan Chest pain, Jaw pain ED Provider Note NAME: RONNIE GRANGER AGE: 86 SEX: F : 1935 ARRIVES VIA: Ambulance INFORMANT: Patient ED PROVIDER(S): Ron Lawrence DO CHIEF COMPLAINT: chest pain HPI: Patient is an 86-year-old female with past medical history of a CABG who presents the ER for exertional chest pain. Pain started around 2-2:30 while she was cleaning her porch and her windows. It resolved about half hour afterwards. She admits to dull pain associated with it. No arm pain. No significant shortness of breath. She notes this feels like her previous time that she got her bypass. She has absolutely no symptoms at this time. She does not take aspirin. ROS: See above HPI for pertinent positives & negatives. A total of 10 systems reviewed and were otherwise negative. PAST MEDICAL HISTORY:See Below PAST SURGICAL HISTORY:See Below FAMILY HISTORY:See Below SOCIAL HISTORY:See Below HOME MEDICATIONS:See Below ALLERGIES:See Below VITALS:See Below PHYSICAL EXAMINATION: GENERAL: Sitting up in bed, alert, well appearing, well nourished, no distress, non-toxic EYE EXAM: normal conjunctiva. OROPHARYNX: no exudate, no erythema, lips, buccal mucosa, and tongue normal and mucous membranes are moist NECK: supple, no nuchal rigidity, no adenopathy, non-tender LUNGS: Clear to auscultation. Normal chest wall mechanics HEART: no murmurs, S1 normal and S2 normal ABDOMEN: abdomen soft, non-tender, normo-active bowel sounds, no masses, no rebound or guarding. UPPER EXTREMITIES: upper extremities are grossly normal. LOWER EXTREMITIES: No pitting edema. NEURO EXAM: Normal sensorium, cranial nerves II-XII grossly intact, normal speech, no gross weakness of arms, no gross weakness of legs. MEDICAL DECISION MAKING: Patient is an 86-year-old female who presents ER for exertional chest pain with a PMH history of CABG. IV was established and blood work was obtained. Labs show no significant leukocytosis or anemia. BMP along with LFTs bilirubin and lipase was unremarkable. Troponin was negative. UA was clean. COVID was negative. Patient was given aspirin. She was placed on Nitropaste due to the elevated blood pressure. She was discussed with the hospitalist admitted for further work-up. Triage Nursing notes reviewed. Limited review of prior medical records performed Vital Signs: reviewed and remarkable for HTN Differential diagnosis: Differential diagnoses includes but is not limited to acute coronary syndrome, myocardial infarction, pericarditis, pulmonary embolus, aortic dissection, pneumonia, pneumothorax, musculoskeletal, shingles, esophageal. ER treatment provided: See below Diagnostics interpreted by me: ECG: Sinus rhythm rate of 57 Left axis No PVCs QTC 449 Cardiac Monitoring: An order was placed for continuous cardiac monitoring. The monitor shows a rate of 60 with sinus rhythm. Laboratory studies: As stated above and show below. Imaging studies: Portable AP upright 1 view of the chest is unremarkable Consultation(s): Discussed with hospitalist for further evaluation Procedures: none Critical Care: None Past Med/Surg History Social History Smoking Status: Never smoker Preferred Language: Frisian Feels Safe at Home: Yes Allergies Allergies Allergy/AdvReac Type Severity Reaction Status Date / Time ampicillin Allergy Intermediate urticaria Verified 08/20/21 18:08 naproxen Allergy Intermediate facial Verified 08/20/21 18:08 swelling,hypertension Sulfa (Sulfonamide Allergy Intermediate RASH Verified 08/20/21 18:08 Antibiotics) Cephalosporins AdvReac Intermediate RASH, Verified 08/20/21 18:08 diarrhea Cipro AdvReac Intermediate itching Verified 01/20/17 02:46 ciprofloxacin [Cipro] AdvReac Intermediate itching Verified 08/20/21 18:08 adhesive AdvReac Mild RED SKIN Verified 08/20/21 18:08 lisinopril AdvReac Mild cough Verified 08/20/21 18:08 propoxyphene AdvReac Mild nausea Verified 08/20/21 18:08 Home Meds Home Medications Medication Instructions Recorded Confirmed biotin 5 mg tablet 5 mg PO [facility] 08/20/21 08/20/21 clopidogrel 75 mg tablet 75 mg PO 08/20/21 08/20/21 diltiazem HCl 240 mg 240 mg PO [facility] 08/20/21 08/20/21 capsule,extended release 24 hr furosemide 20 mg tablet 20 mg PO [facility] 08/20/21 08/20/21 losartan 100 mg tablet 100 mg PO 08/20/21 08/20/21 metoprolol tartrate 50 mg tablet 50 mg PO BID 08/20/21 08/20/21 multivitamin with minerals 1 tab PO [facility] 08/20/21 08/20/21 rosuvastatin 10 mg tablet 10 mg PO 08/20/21 08/20/21 Results & Data (ED) Vital Signs Vital Signs - 24 hr 08/20/21 15:50 08/20/21 16:32 08/20/21 18:00 Temperature 36.6 C Temperature Source Oral Pulse Rate 60 61 Pulse Rate [Apical] 61 Respiratory Rate 16 21 Blood Pressure 196/84 H Blood Pressure [Right Arm] 189/81 H Blood Pressure Mean 121 Blood Pressure Mean [Right Arm] 117 Pulse Oximetry 96 95 95 Oxygen Delivery Method Room Air Room Air Room Air Sepsis Recent Fever Within 48 Hours No Sepsis New/Unexplained Change in Mental Status No Sepsis Action Taken by Nursing No Action Required Laboratory Data Result diagrams: 08/20/21 15:55 08/20/21 15:55 Lab Results 08/20/21 08/20/21 08/20/21 Range/Units 15:55 15:55 15:55 WBC 5.07 (4.8-10.8) K/uL RBC 3.93 L (4.2-5.4) M/uL Hgb 12.6 (12.0-16.0) g/dL Hct 37.7 (37-47) % MCV 95.9 (80-100) fL MCH 32.1 (25-34) pg MCHC 33.4 (32-36) g/dL RDW Std Deviation 45.7 (36.4-46.3) fL RDW Coeff of Jj 13.0 (11.5-14.5) % Plt Count 328 (130-400) K/uL MPV 10.7 H (7.4-10.4) fL Immature Gran % (Auto) 0.2 % Neut % (Auto) 55.2 % Lymph % (Auto) 30.0 % Winston % (Auto) 9.5 % Eos % (Auto) 4.1 % Baso % (Auto) 1.0 % Neut # (Auto) 2.80 (1.4-6.5) K/uL Lymph # (Auto) 1.52 (1.2-3.4) K/uL Winston # (Auto) 0.48 (0.11-0.59) K/uL Eos # (Auto) 0.21 (0-0.5) K/uL Baso # (Auto) 0.05 (0-0.2) K/uL Immature Gran # (Auto) 0.01 (0.00-0.02) K/uL Sodium 139 (136-145) mmol/L Potassium 4.1 (3.5-5.1) mmol/L Chloride 105 (98-107) mmol/L Carbon Dioxide 27 (21-32) mmol/L Anion Gap 7 (3-11) BUN 27 H (6-23) mg/dl Creatinine 0.92 (0.6-1.2) mg/dl Est Cr Clr Drug Dosing 38.8 ml/min Est GFR ( Amer) 64.9 ml/min Est GFR (Non-Af Amer) 56.0 ml/min BUN/Creatinine Ratio 29.3 H (10-20) Glucose 124 H (70-99(Fasting)) mg/dl Calcium 9.6 (8.5-10.1) mg/dl Total Bilirubin 0.4 (0.2-1.0) mg/dl AST 19 (13-39) U/L ALT 15 (7-52) U/L Alkaline Phosphatase 56 (34-104) U/L Troponin I High Sens 6.5 (0-14) pg/ml Total Protein 6.9 (6.0-8.3) gm/dl Albumin 4.0 (3.4-5.0) gm/dl Globulin 2.9 (2.5-4.0) gm/dl Albumin/Globulin Ratio 1.4 (0.9-2) Lipase 32 (11-82) U/L Urine Color Urine Appearance (Clear) Urine pH (4.5-7.5) Ur Specific Milton (1.000-1.030) Urine Protein (Negative) Urine Glucose (UA) (Negative) Urine Ketones (Negative) Urine Blood (Negative) Urine Nitrite (Negative) Urine Bilirubin (Negative) Urine Urobilinogen (Negative) Ur Leukocyte Esterase (Negative) SARS-CoV-2, RNA, NAAT (NEGATIVE) 08/20/21 08/20/21 Range/Units 16:11 18:00 WBC (4.8-10.8) K/uL RBC (4.2-5.4) M/uL Hgb (12.0-16.0) g/dL Hct (37-47) % MCV (80-100) fL MCH (25-34) pg MCHC (32-36) g/dL RDW Std Deviation (36.4-46.3) fL RDW Coeff of Jj (11.5-14.5) % Plt Count (130-400) K/uL MPV (7.4-10.4) fL Immature Gran % (Auto) % Neut % (Auto) % Lymph % (Auto) % Winston % (Auto) % Eos % (Auto) % Baso % (Auto) % Neut # (Auto) (1.4-6.5) K/uL Lymph # (Auto) (1.2-3.4) K/uL Winston # (Auto) (0.11-0.59) K/uL Eos # (Auto) (0-0.5) K/uL Baso # (Auto) (0-0.2) K/uL Immature Gran # (Auto) (0.00-0.02) K/uL Sodium (136-145) mmol/L Potassium (3.5-5.1) mmol/L Chloride (98-107) mmol/L Carbon Dioxide (21-32) mmol/L Anion Gap (3-11) BUN (6-23) mg/dl Creatinine (0.6-1.2) mg/dl Est Cr Clr Drug Dosing ml/min Est GFR ( Amer) ml/min Est GFR (Non-Af Amer) ml/min BUN/Creatinine Ratio (10-20) Glucose (70-99(Fasting)) mg/dl Calcium (8.5-10.1) mg/dl Total Bilirubin (0.2-1.0) mg/dl AST (13-39) U/L ALT (7-52) U/L Alkaline Phosphatase (34-104) U/L Troponin I High Sens (0-14) pg/ml Total Protein (6.0-8.3) gm/dl Albumin (3.4-5.0) gm/dl Globulin (2.5-4.0) gm/dl Albumin/Globulin Ratio (0.9-2) Lipase (11-82) U/L Urine Color Yellow Urine Appearance Clear (Clear) Urine pH 6.5 (4.5-7.5) Ur Specific [place] 1.006 (1.000-1.030) Urine Protein Negative (Negative) Urine Glucose (UA) Negative (Negative) Urine Ketones Negative (Negative) Urine Blood Negative (Negative) Urine Nitrite Negative (Negative) Urine Bilirubin Negative (Negative) Urine Urobilinogen Negative (Negative) Ur Leukocyte Esterase Negative (Negative) SARS-CoV-2, RNA, NAAT NEGATIVE (NEGATIVE) Administered Medications Nitroglycerin (Nitroglycerin 2% Ointment 30gm Tube) 0.5 inch EXT Q6H LIN Stop: 09/19/21 16:14 Last Admin: 08/20/21 16:44 Dose: 0.5 inch Documented by: [id number] Discontinued Medications Aspirin (Aspirin Chew 324 Mg) 324 mg PO NOW STA Stop: 08/20/21 16:10 Last Admin: 08/20/21 16:45 Dose: 324 mg Documented by: [id number] Imaging Data Radiologist's Impression: Chest X-Ray 08/20/21 16:09 XR chest 1V portable CLINICAL HISTORY: Atypical chest pain TECHNIQUE: Single frontal radiograph of the chest was obtained. Comparison: Comparison is made to chest radiograph 01/20/2017 FINDINGS: Median sternotomy wires are unchanged. The cardiomediastinal silhouette is normal. The lungs are clear. No evidence of pleural effusion or pneumothorax. IMPRESSION: No acute chest disease. ACT 112: Negative or not required by law. Electronically signed by: Samson Velázquez M.D. 08/20/2021 4:22 PM Discharge Plan Visit Data Chief Complaint: Chest Pain ED Provider: Ron Lawrence Discharge Problem: Chest pain, Jaw pain Forms Stand Alone Forms: [facility] [employer] Prescriptions Prescriptions: No Action diltiazem HCl 240 mg capsule,extended release 24hr 240 mg PO QAM RF: 0 clopidogrel 75 mg tablet 75 mg PO HS RF: 0 metoprolol tartrate 50 mg tablet 50 mg PO BID RF: 0 furosemide 20 mg tablet 20 mg PO QAM RF: 0 One Daily 50 Plus Tablet 1 tab PO QAM RF: 0 losartan 100 mg tablet 100 mg PO HS RF: 0 rosuvastatin 10 mg tablet 10 mg PO HS RF: 0 biotin 5 mg Tablet 5 mg PO QAM RF: 0 Referrals Referrals: PCP,NO [Physician] - Discharge Problem: Chest pain Qualifiers: Chest pain type: unspecified Qualified Code(s): R07.9 - Chest pain, unspecified
[2021-08-20 16:23] LABS: Basophils # (auto) 0.05 K/uL (0-0.2); Eosinophils # (auto) 0.21 K/uL (0-0.5); Eosinophils % (auto) 4.1 %; Hematocrit (blood only) 37.7 % (37-47); Hemoglobin 12.6 g/dL (12.0-16.0); Immature Granulocytes # (auto) 0.01 K/uL (0.00-0.02); Immature Granulocytes % (auto) 0.2 %; Lymphocytes # (auto) 1.52 K/uL (1.2-3.4); Mean Corpuscular Hemoglobin 32.1 pg (25-34); Mean Corpuscular Hgb Conc 33.4 g/dL (32-36); Mean Corpuscular Volume 95.9 fL (80-100); Mean Platelet Volume 10.7 fL (7.4-10.4); Monocytes # (auto) 0.48 K/uL (0.11-0.59); Monocytes % (auto) 9.5 %; Neutrophils % (auto) 55.2 %; Platelet Count 328 K/uL (130-400); RDW Standard Deviation 45.7 fL (36.4-46.3); Red Blood Count 3.93 M/uL (4.2-5.4); White Blood Count 5.07 K/uL (4.8-10.8)
--- NOTE | 2021-08-20 16:23 | XRay Report ---
XR chest 1V portable CLINICAL HISTORY: Atypical chest pain TECHNIQUE: Single frontal radiograph of the chest was obtained. Comparison: Comparison is made to chest radiograph 01/20/2017 FINDINGS: Median sternotomy wires are unchanged. The cardiomediastinal silhouette is normal. The lungs are suzette r. No evidence of pleural effusion or pneumothorax. IMPRESSION: No acute chest disease. ACT 112: Negative or not required by law. Electronically signed by: Samson Velázquez M.D. 08/20/2021 4:22 PM
[2021-08-20] MEDS: NITROGLYCERIN 2% OINTMENT 30GM TUBE EXT SCH ×2 (16:44→21:33)
[2021-08-20 16:55] LABS: Albumin Globulin Ratio 1.4 (0.9-2); BUN Creatinine Ratio 29.3 (10-20); Bilirubin,Total 0.4 mg/dl (0.2-1.0); Calcium 9.6 mg/dl (8.5-10.1); Creatinine Clr Calc Pharmacy 38.8 ml/min; Est GFR (African American) 64.9 ml/min; Globulin 2.9 gm/dl (2.5-4.0); Potassium 4.1 mmol/L (3.5-5.1); Total Protein 6.9 gm/dl (6.0-8.3)
--- NOTE | 2021-08-20 18:11 | History & Physical Report ---
Date of Service August 20, 2021 Assessment & Plan (1) Chest pain: (2) History of coronary artery bypass graft: (3) Stage III chronic kidney disease: Plan: Chest pain- details as above. H/o CABG 2017, doing fine since then, last seen by cardio 05/2021. Trop x 1 neg, EKG with no acute ischemic changes. Observation on tele, trend trop, repeat EKG in am. npo after midnight. Might need stress test- defer further to cardio who has been consulted. Consult cardio for further management. H/o CABG 2017 with GARDNER to LAD and SVG to obtuse marginal- on plavix, betablocker, statin Hypertension, currently elevated- on nitro paste. Continue losartan hs, metoprolol bid, diltiazem qam. Will add HLZ prn. H/o paroxysmal VT/ PAT- on ditiazem, metoprolol. monitor on tele CKD3a- Cr stable, at baseline. DVT ppx- Scd Dispo- observation Updated daughter at bedside History of Present Illness Chief Complaint: chest pain Primary Care Provider: Brianna Mari, 86 year old female with h/o CAD s/p CABG 2017, HTN, who presented to the ED with chest pain. States she has been was outside today scrubbing her porch and moving furniture around 2 pm when she developed chest pain across her chest that radiated to her back and teeth. She took 2 SL nitro and came to the ED via EMS. No other associated symptoms like shortness of breath, diaphoresis, radiation to arms, palpitations. States pain was already improving and gone by the time she was in the ED, lasted for about 20 mins or so. She again developed chest pain for few seconds while lying in the bed in the ED, prior to my encounter but none during my encounter. States she is under quite amount of stress due to her who is developing dementia. She regularly sees cardio, last seen in 05/2021. Allergies Allergy/AdvReac Type Severity Reaction Status Date / Time ampicillin Allergy Intermediate urticaria Verified 08/20/21 18:08 naproxen Allergy Intermediate facial Verified 08/20/21 18:08 swelling,hypertension Sulfa (Sulfonamide Allergy Intermediate RASH Verified 08/20/21 18:08 Antibiotics) Cephalosporins AdvReac Intermediate RASH, Verified 08/20/21 18:08 diarrhea Cipro AdvReac Intermediate itching Verified 01/20/17 02:46 ciprofloxacin [Cipro] AdvReac Intermediate itching Verified 08/20/21 18:08 adhesive AdvReac Mild RED SKIN Verified 08/20/21 18:08 lisinopril AdvReac Mild cough Verified 08/20/21 18:08 propoxyphene AdvReac Mild nausea Verified 08/20/21 18:08 Home Medications Medication Instructions Recorded Confirmed Type biotin 5 mg tablet 5 mg PO [facility] 08/20/21 08/20/21 History clopidogrel 75 mg tablet 75 mg PO HS 08/20/21 08/20/21 History diltiazem HCl 240 mg 240 mg PO [facility] 08/20/21 08/20/21 History capsule,extended release 24 hr furosemide 20 mg tablet 20 mg PO [facility] 08/20/21 08/20/21 History losartan 100 mg tablet 100 mg PO 08/20/21 08/20/21 History metoprolol tartrate 50 mg tablet 50 mg PO BID 08/20/21 08/20/21 History multivitamin with minerals 1 tab PO [facility] 08/20/21 08/20/21 History rosuvastatin 10 mg tablet 10 mg PO 08/20/21 08/20/21 History Past Med/Surg History Social History Smoking Status: Never smoker Preferred Language: Cameroonian Feels Safe at Home: Yes Review of Systems Review of Systems: All systems reviewed & are unremarkable except as noted in Subjective Physical Exam Physical Exam: General: Lying comfortably in bed, not in distress, on room air HEENT: EOMI, MAULIK, MMM Chest: Clear breath sounds bilaterally, no wheezes or crackles CVS: Regular rate and rhythm, normal heart sounds, no murmur Abdomen: Soft, non tender, not distended, normal bowel sounds Neuro: Awake, alert, oriented, conversing well, non focal Extremities: No cyanosis, clubbing, chronic LE edema Results & Data Results & Data ([facility] [place]) Vital Signs (Past 12 Hours) Vital Signs Temp Pulse Resp BP Pulse Ox 08/20/21 16:32 95 08/20/21 15:50 36.6 C 60 16 196/84 H 96 Laboratory Results Short CBC 08/20/21 Range/Units 15:55 WBC 5.07 (4.8-10.8) K/uL Hgb 12.6 (12.0-16.0) g/dL Hct 37.7 (37-47) % Plt Count 328 (130-400) K/uL BMP 08/20/21 15:55 Sodium 139 Potassium 4.1 Chloride 105 Carbon Dioxide 27 BUN 27 H Creatinine 0.92 Glucose 124 H Calcium 9.6 Liver Function 08/20/21 Range/Units 15:55 Total Bilirubin 0.4 (0.2-1.0) mg/dl AST 19 (13-39) U/L ALT 15 (7-52) U/L Alkaline Phosphatase 56 (34-104) U/L Albumin 4.0 (3.4-5.0) gm/dl Diagnostic Findings Chest X-Ray 08/20/21 16:09 XR chest 1V portable CLINICAL HISTORY: Atypical chest pain TECHNIQUE: Single frontal radiograph of the chest was obtained. Comparison: Comparison is made to chest radiograph 01/20/2017 FINDINGS: Median sternotomy wires are unchanged. The cardiomediastinal silhouette is normal. The lungs are clear. No evidence of pleural effusion or pneumothorax. IMPRESSION: No acute chest disease. ACT 112: Negative or not required by law. Electronically signed by: Samson Velázquez M.D. 08/20/2021 4:22 PM Code Status & VTE Plan VTE Prophylaxis Plan VTE Prophylaxis will be ordered: Yes
[2021-08-20 18:59] LABS: Appearance Urine Clear (Clear); Bilirubin Urine Negative (Negative); Blood Urine Negative (Negative); Color Urine Yellow; Glucose Urine UA Negative (Negative); Ketones Urine Negative (Negative); Leukocyte Esterase Urine Negative (Negative); Nitrite Urine Negative (Negative); Protein Urine Negative (Negative); Specific Gravity Urine 1.006 (1.000-1.030); Urobilinogen Urine Negative (Negative); pH Urine 6.5 (4.5-7.5)
[2021-08-20] MEDS ORDERED: hydrALAZINE HCL 20 MG/ML VIAL IV PRN (19:52)
[2021-08-20] MEDS: METOPROLOL TARTRATE 50 MG TAB PO SCH (20:08)
[2021-08-20] MEDS ORDERED: CLOPIDOGREL BISULFATE 75 MG TAB PO SCH (21:00)
[2021-08-20] MEDS ORDERED: ROSUVASTATIN CALCIUM 10 MG TAB PO SCH (21:00)
[2021-08-20] MEDS ORDERED: LOSARTAN POTASSIUM 50 MG TAB PO SCH (21:00)
[2021-08-21 02:36] LABS: Calcium 9.4 mg/dl (8.5-10.1); Creatinine Clr Calc Pharmacy 42.4 ml/min; Est GFR (African American) 74.6 ml/min; Est GFR (Non-African American) 64.3 ml/min; Potassium 3.7 mmol/L (3.5-5.1)
[2021-08-21 02:58] LABS: Troponin I High Sensitivity 7.9 pg/ml (0-14)
[2021-08-21] MEDS: NITROGLYCERIN 2% OINTMENT 30GM TUBE EXT SCH ×2 (04:09→13:32)
[2021-08-21] MEDS ORDERED: dilTIAZem HCL 240 MG CAPCR PO SCH (09:00)
--- NOTE | 2021-08-21 09:23 | Cardiology Consultation ---
Date of Consultation August 21, 2021 Assessment & Plan (1) Chest pain: (2) Hypertensive urgency: (3) ASCVD (arteriosclerotic cardiovascular disease): (4) History of coronary artery bypass graft: (5) Paroxysmal ventricular tachycardia: 86-year-old female admitted following an episode of exertional chest pain aided by rest and 2 sublingual nitroglycerin, symptoms similar to those leading to discovery of multivessel coronary artery disease and subsequent CABG x2 as detailed above. EKGs without acute change. High-sensitivity troponin negative x4. Blood pressure markedly elevated on presentation. Recommend additional blood pressure control. Refer for resting echocardiography. Likely pharmacological stress testing today, pending resting echocardiography, evaluation by Dr. Martinez. Supervising Physician Co-Signing Physician Notes Patient seen and personally examined. Patient with known coronary disease and hypertensive heart disease who presented with symptoms of exertionally related chest pressure pain. No signs of myocardial injury or ischemia by EKG or cardiac enzymes. Echocardiogram demonstrates normal wall motion Patient underwent dobutamine stress echocardiogram today personally supervised without ischemia by EKG or echocardiogram. Blood pressure response was hypertensive Recommendations. Patient stable for discharge with close clinical follow-up cardiology 2 to 4 weeks [facility] Continue outpatient medical regimen adding isosorbide mononitrate 60 mg p.o. daily for additional blood pressure and antianginal effect Avoid strenuous activity for 3 days until blood pressure better control History of Present Illness Reason for Consultation: Chest pain Requesting Physician: Fred Attending Physician: Yomaira History of Present Illness Mrs. Tia Ware is a very pleasant 86 year old female who is being seen today at the request of Dr. Ibarra. Reason for consultation is chest pain. Patient notes developing bilateral chest pain radiating into the center and into her back while scrubbing the front porch, cleaning the windows, and moving the chairs. The discomfort was without associated symptoms such as shortness of breath, diaphoresis, nausea, etc. It was very similar to the pain that led to CABG. She notes having had a similar episode of chest pain after CABG that was attributed to indigestion at that time. Notes improvement in the chest pain with rest and then two sublingual nitroglycerin. Son Manpreet and daughter were concerned, insisting on called 911. BP on presentation was 196/84. The event yesterday lasted for approximately 15 to 20 minutes. She did have some back pain while in the emergency room but no further chest discomfort. She has been chest pain free since admission. She notes being under significant amount of stress with her Manpreet who has progressive dementia. EKG on presentation revealed sinus bradycardia at 57 bpm with minimal voltage criteria for LVH, without acute ST segment changes. EKG this morning revealed sinus bradycardia with a first-degree AV block, without acute ST segment changes. High sensitivity troponin negative x 4 at 6.5, 8.1, 7.9, 7.7 pg/mL. Patient with multivessel coronary artery disease. Cardiac catheterization performed by Dr. Greenberg on January 21, 2017 revealed left dominant coronary anatomy, normal left main, 50% proximal LAD, 50% mid LAD, 95% distal LAD, 80% mid left circumflex stenosis, and 80% mid RCA stenosis, status post coronary artery bypass grafting x2 with GARDNER to the LAD and a saphenous vein to the OM on 01/26/[address] Hunt. CABG course complicated by postoperative atrial fibrillation. Allergies Allergy/AdvReac Type Severity Reaction Status Date / Time ampicillin Allergy Intermediate urticaria Verified 08/20/21 18:08 naproxen Allergy Intermediate facial Verified 08/20/21 18:08 swelling,hypertension Sulfa (Sulfonamide Allergy Intermediate RASH Verified 08/20/21 18:08 Antibiotics) Cephalosporins AdvReac Intermediate RASH, Verified 08/20/21 18:08 diarrhea Cipro AdvReac Intermediate itching Verified 01/20/17 02:46 ciprofloxacin [Cipro] AdvReac Intermediate itching Verified 08/20/21 18:08 adhesive AdvReac Mild RED SKIN Verified 08/20/21 18:08 lisinopril AdvReac Mild cough Verified 08/20/21 18:08 propoxyphene AdvReac Mild nausea Verified 08/20/21 18:08 Home Medications Medication Instructions Recorded Confirmed Type biotin 5 mg tablet 5 mg PO [facility] 08/20/21 08/20/21 History clopidogrel 75 mg tablet 75 mg PO 08/20/21 08/20/21 History diltiazem HCl 240 mg 240 mg PO QA 08/20/21 08/20/21 History capsule,extended release 24 hr furosemide 20 mg tablet 20 mg PO QA 08/20/21 08/20/21 History losartan 100 mg tablet 100 mg PO 08/20/21 08/20/21 History metoprolol tartrate 50 mg tablet 50 mg PO BID 08/20/21 08/20/21 History multivitamin with minerals 1 tab PO QAM 08/20/21 08/20/21 History rosuvastatin 10 mg tablet 10 mg PO HS 08/20/21 08/20/21 History Patient History Social History Smoking Status: Never smoker Hx Alcohol Use: No Hx Substance Use: No Preferred Language: Occitan Communication Ability: Effective 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 Physical Exam Physical Exam: General: A&Ox3. NAD. HENT: Normocephalic. Atraumatic. Eyes: PER. Conjunctiva pink, sclera clear. Neck: Bilateral carotid bruits. No JVD. No HJR. Heart: RRR, 60 bpm. Grade II/ systolic murmur. No rub. PMI is nondisplaced. Lungs: Clear to auscultation. Abdomen: +BS. Soft. Nontender. No masses or organomegaly. Extremities: Lymphedematous changes. Minimal edema, right greater than left. No clubbing. No cyanosis. Limited neurological examination is without focal deficits. Pulses: radial=2/4, posterior tibial=1-2/4. Results & Data ([facility]) Vital Signs (Past 12 Hours) Vital Signs Temp Pulse Resp BP BP Pulse Ox 08/21/21 07:33 36.5 C 64 18 181/68 H 94 08/21/21 04:00 36.6 C 56 L 18 127/59 L 95 08/20/21 23:00 36.6 C 53 L 18 133/63 95 Laboratory Results Laboratory Results - last 48 hr 08/20/21 08/20/21 08/20/21 15:55 15:55 15:55 WBC 5.07 RBC 3.93 L Hgb 12.6 Hct 37.7 MCV 95.9 MCH 32.1 MCHC 33.4 RDW Std Deviation 45.7 RDW Coeff of Jj 13.0 Plt Count 328 MPV 10.7 H Immature Gran % (Auto) 0.2 Neut % (Auto) 55.2 Lymph % (Auto) 30.0 [place] % (Auto) 9.5 Eos % (Auto) 4.1 Baso % (Auto) 1.0 Neut # (Auto) 2.80 Lymph # (Auto) 1.52 [place] # (Auto) 0.48 Eos # (Auto) 0.21 Baso # (Auto) 0.05 Immature Gran # (Auto) 0.01 Sodium 139 Potassium 4.1 Chloride 105 Carbon Dioxide 27 Anion Gap 7 BUN 27 H Creatinine 0.92 Est Cr Clr Drug Dosing 38.8 Est GFR ( Amer) 64.9 Est GFR (Non-Af Amer) 56.0 BUN/Creatinine Ratio 29.3 H Glucose 124 H Calcium 9.6 Total Bilirubin 0.4 AST 19 ALT 15 Alkaline Phosphatase 56 Troponin I High Sens 6.5 Total Protein 6.9 Albumin 4.0 Globulin 2.9 Albumin/Globulin Ratio 1.4 Lipase 32 Urine Color Urine Appearance Urine pH Ur Specific Forrest Urine Protein Urine Glucose (UA) Urine Ketones Urine Blood Urine Nitrite Urine Bilirubin Urine Urobilinogen Ur Leukocyte Esterase SARS-CoV-2, RNA, NAAT 08/20/21 08/20/21 08/20/21 16:11 18:00 20:14 WBC RBC Hgb Hct MCV MCH MCHC RDW Std Deviation RDW Coeff of Jj Plt Count MPV Immature Gran % (Auto) Neut % (Auto) Lymph % (Auto) [place] % (Auto) Eos % (Auto) Baso % (Auto) Neut # (Auto) Lymph # (Auto) [place] # (Auto) Eos # (Auto) Baso # (Auto) Immature Gran # (Auto) Sodium Potassium Chloride Carbon Dioxide Anion Gap BUN Creatinine Est Cr Clr Drug Dosing Est GFR ( Amer) Est GFR (Non-Af Amer) BUN/Creatinine Ratio Glucose Calcium Total Bilirubin AST ALT Alkaline Phosphatase Troponin I High Sens 8.1 Total Protein Albumin Globulin Albumin/Globulin Ratio Lipase Urine Color Yellow Urine Appearance Clear Urine pH 6.5 Ur Specific Forrest 1.006 Urine Protein Negative Urine Glucose (UA) Negative Urine Ketones Negative Urine Blood Negative Urine Nitrite Negative Urine Bilirubin Negative Urine Urobilinogen Negative Ur Leukocyte Esterase Negative SARS-CoV-2, RNA, NAAT NEGATIVE 08/21/21 08/21/21 08/21/21 01:59 01:59 07:43 WBC RBC Hgb Hct MCV MCH MCHC RDW Std Deviation RDW Coeff of Jj Plt Count MPV Immature Gran % (Auto) Neut % (Auto) Lymph % (Auto) [place] % (Auto) Eos % (Auto) Baso % (Auto) Neut # (Auto) Lymph # (Auto) [place] # (Auto) Eos # (Auto) Baso # (Auto) Immature Gran # (Auto) Sodium 141 Potassium 3.7 Chloride 106 Carbon Dioxide 28 Anion Gap 7 BUN 23 Creatinine 0.82 Est Cr Clr Drug Dosing 42.4 Est GFR ( Amer) 74.6 Est GFR (Non-Af Amer) 64.3 BUN/Creatinine Ratio 28.0 H Glucose 73 Calcium 9.4 Total Bilirubin AST ALT Alkaline Phosphatase Troponin I High Sens Cancelled 7.9 7.7 Total Protein Albumin Globulin Albumin/Globulin Ratio Lipase Urine Color Urine Appearance Urine pH Ur Specific Forrest Urine Protein Urine Glucose (UA) Urine Ketones Urine Blood Urine Nitrite Urine Bilirubin Urine Urobilinogen Ur Leukocyte Esterase SARS-CoV-2, RNA, NAAT Diagnostic Findings Continuous telemetry monitoring has revealed sinus predominately in the 60's with occasional PAC's (1) Chest pain Chest pain type: unspecified Qualified Code(s): R07.9 - Chest pain, unspecified
--- NOTE | 2021-08-21 10:18 | Hospitalist Progress Note ---
Date of Service August 21, 2021 Assessment & Plan (1) Chest pain: (2) History of coronary artery bypass graft: (3) Stage III chronic kidney disease: Plan: Chest pain H/o CABG 2017 with GARDNER to LAD and SVG to obtuse marginal On plavix, metoprolol, statin Reported pain similar to one after CABG. Improved with rest and nitro Trop HS trend is negative EKG does not show acute ischemic change Considering patient's cardiac hx, suspicious nature of chest pain, will need further evaluation Get [facility] on board. May need stress vs cath Hypertension Continue losartan hs, metoprolol bid, diltiazem qam. Monitor. May need better optimization for BP control H/o paroxysmal VT/ PA Continue metoprolol, diltiazem CKD3a Cr stable, at baseline. DVT ppx- Scd Dispo- observation Admission and Anticipated Discharge Date Admission Date: August 20, 2021 Subjective Patient seen and examined Patient denied any symptoms at this time Reported chest pain yesterday at home that started while cleaning her porch, bilateral, coming to canter and radiating to her back, not associated with nausea, vomiting, SOB. Similar to pain she had after her CABG. Improved with rest and nitro. Review of Systems Review of Systems: All systems reviewed & are unremarkable except as noted in Subjective Physical Exam Constitutional: + well hydrated; no acute distress Elderly woman Eyes: PERRL, conjunctivae normal, anicteric sclerae ENMT: external ear and nose normal, oropharynx normal Respiratory: normal respiratory effort, lungs clear to auscultation Cardiovascular: Rate/Rhythm: regular rate and regular rhythm S1 S2 Gastrointestinal (Abdomen): normal bowel sounds, soft, nontender, no hepatosplenomegaly Musculoskeletal: +pedal edema Neurologic: PERRL, EOMI, accommodation nl, no face palsy, no dysarthria Psychiatric: A+Ox3, euthymic affect Results & Data Results & Data ([facility]) Vital Signs (Past 12 Hours) Vital Signs Temp Pulse Resp BP BP Pulse Ox 08/21/21 07:33 36.5 C 64 18 181/68 H 94 08/21/21 04:00 36.6 C 56 L 18 127/59 L 95 08/20/21 23:00 36.6 C 53 L 18 133/63 95 Laboratory Results Abnormal lab results 08/20/21 08/20/21 08/21/21 Range/Units 15:55 15:55 01:59 RBC 3.93 L (4.2-5.4) M/uL MPV 10.7 H (7.4-10.4) fL BUN 27 H (6-23) mg/dl BUN/Creatinine Ratio 29.3 H 28.0 H (10-20) Glucose 124 H (70-99(Fasting)) mg/dl
[2021-08-21] MEDS: METOPROLOL TARTRATE 50 MG TAB PO SCH (13:31)
[2021-08-21] MEDS ORDERED: METOPROLOL TARTRATE 1 MG/ML VIAL IV ONE (13:41)
[2021-08-21] MEDS ORDERED: DOBUTamine HCL 12.5 MG/ML 20 ML VIAL IV ONE (13:41)
[2021-08-21] MEDS ORDERED: ATROPINE SULFATE 0.1 MG/ML 10ML SYR IV ONE (13:41)
[2021-08-21] MEDS ORDERED: ISOSORBIDE MONO EXTENDED REL 60 MG TABCR PO SCH (15:30)
--- NOTE | 2021-08-21 17:09 | Discharge Summary ---
Date of Service August 21, 2021 Admission HPI Per Admitting Provider 86 year old female with h/o CAD s/p CABG 2017, HTN, who presented to the ED with chest pain. States she has been was outside today scrubbing her porch and moving furniture around 2 pm when she developed chest pain across her chest that radiated to her back and teeth. She took 2 SL nitro and came to the ED via EMS. No other associated symptoms like shortness of breath, diaphoresis, radiation to arms, palpitations. States pain was already improving and gone by the time she was in the ED, lasted for about 20 mins or so. She again developed chest pain for few seconds while lying in the bed in the ED, prior to my encounter but none during my encounter. States she is under quite amount of stress due to her who is developing dementia. She regularly sees cardio, last seen in 05/2021. Admission Exam Per Admitting Provider General: Lying comfortably in bed, not in distress, on room air HEENT: EOMI, MAULIK, MMM Chest: Clear breath sounds bilaterally, no wheezes or crackles CVS: Regular rate and rhythm, normal heart sounds, no murmur Abdomen: Soft, non tender, not distended, normal bowel sounds Neuro: Awake, alert, oriented, conversing well, non focal Extremities: No cyanosis, clubbing, chronic LE edema Principal Diagnosis Chest pain Hypertensive urgency Discharge Exam Constitutional + well hydrated; no acute distress Eyes PERRL, conjunctivae normal, anicteric sclerae ENMT external ear and nose normal, oropharynx normal Respiratory normal respiratory effort, lungs clear to auscultation Cardiovascular Rate/Rhythm: regular rate and regular rhythm S1 S2 Gastrointestinal (Abdomen) normal bowel sounds, soft, nontender, no hepatosplenomegaly Musculoskeletal +pedal edema Neurologic PERRL, EOMI, accommodation nl, no face palsy, no dysarthria Psychiatric A+Ox3, euthymic affect Discharge Data Allergies Allergy/AdvReac Type Severity Reaction Status Date / Time ampicillin Allergy Intermediate urticaria Verified 08/20/21 18:08 naproxen Allergy Intermediate facial Verified 08/20/21 18:08 swelling,hypertension Sulfa (Sulfonamide Allergy Intermediate RASH Verified 08/20/21 18:08 Antibiotics) Cephalosporins AdvReac Intermediate RASH, Verified 08/20/21 18:08 diarrhea Cipro AdvReac Intermediate itching Verified 01/20/17 02:46 ciprofloxacin [Cipro] AdvReac Intermediate itching Verified 08/20/21 18:08 adhesive AdvReac Mild RED SKIN Verified 08/20/21 18:08 lisinopril AdvReac Mild cough Verified 08/20/21 18:08 propoxyphene AdvReac Mild nausea Verified 08/20/21 18:08 Consultations 08/20/21 17:18 ED Decision to Admit Stat 08/20/21 18:44 Consult Cardiology Routine Hospital Course (1) Chest pain: (2) History of coronary artery bypass graft: (3) Stage III chronic kidney disease: Chest pain H/o CABG 2017 with GARDNER to LAD and SVG to obtuse marginal On plavix, metoprolol, statin Reported pain similar to one after CABG. Improved with rest and nitro Trop HS trend is negative EKG does not show acute ischemic change Patient had a dobutamine stress Echo which was negative for ischemia Chest pain may be related to poor blood pressure control Was evaluated by Cardiology and started on Imdur Patient to continue other home medications including losartan, metoprolol, diltiazem Needs to follow up with Cardiology in 2-4 weeks Total Time Total Time Spent Total Time Spent (In Minutes): 35 Total Time Includes: Examination of the Patient, Discharge Planning, Medication Reconciliation and Communication With Other Providers Discharge Plan Discharge Items Patient Disposition: Home - Self-Care Reason For Visit: CHEST PAIN Discharge Diagnosis: Chest pain Hypertensive urgency Activity: As commented below Activity Comment: Avoid strenous activity for 3 days until blood pressure control is better Non-emergency contact: Primary Care Provider Call non-emergency contact if: you have any medication questions and your symptoms worsen Follow-up/Referrals: Brianna Mari DO [Primary Care Provider] - (Date & Time 08/28/2021 11:50 AM Provider Brianna Mari DO Department Family Medicine [facility] ) Diet: Heart Healthy Addtl Attending Provider Instructions: Mrs Ware You came to the hospital complaining of chest pain. You also had elevated blood pressure You were evaluated by [facility]. You had a stress test which did not show sign of heart attack. You are being discharged home. A new medication (isosorbide mononitrate) was added to your medication to help with blood pressure management and chest pain as well. Please ensure follow up with Cardiology in 2 to 4 weeks. Please ensure follow up with your Primary Doctor It was a pleasure taking care of you. Pending Studies at Discharge: No Stand-Alone Forms: [facility], Smoking Cessation Medications and DC Order Prescriptions: New isosorbide mononitrate 60 mg Tablet Extended Release 24 Hr 60 mg PO QAM Qty: 30 RF: 0 Continued diltiazem HCl 240 mg capsule,extended release 24hr 240 mg PO QAM RF: 0 clopidogrel 75 mg tablet 75 mg PO HS RF: 0 metoprolol tartrate 50 mg tablet 50 mg PO BID RF: 0 furosemide 20 mg tablet 20 mg PO QAM RF: 0 multivitamin with minerals Tablet 1 tab PO QAM RF: 0 losartan 100 mg tablet 100 mg PO HS RF: 0 rosuvastatin 10 mg tablet 10 mg PO HS RF: 0 biotin 5 mg Tablet 5 mg PO QAM RF: 0 Discharge Orders: Discharge Order (Routine); Ordered 08/21/21 Ordered By: Nancy Burnette Admission Data Admit Date/Time: 08/20/21 17:59 Attending Provider: Nancy Burnette I. Admit Provider: David Ibarra Primary Care Provider: Brianna Mari Other Providers: David Ibarra ; Antwan Leija ; Jhon Bosch ; Gaurang Martinez ; Jaron Wilkins ; Jose Greenberg ; Gabe Freedman ; Jaelyn Wilson ; Emerald Woods ; Brenda Chaudhary ; Conor Espinoza Other Interventions: Discharge Summary Assessment (RN) Last Done: 08/21/21 17:11
--- NOTE | 2021-08-21 19:34 | Electrocardiogram Report ---
Test Reason : Blood Pressure : / mmHG Vent. Rate : 057 BPM Atrial Rate : 057 BPM P-R Int : 198 ms QRS Dur : 094 ms QT Int : 462 ms P-R-T Axes : 062 -17 032 degrees QTc Int : 449 ms Sinus bradycardia Minimal voltage criteria for LVH, may be normal variant Borderline ECG When compared with ECG of 22-JAN-2017 17:43, No significant change was found Confirmed by Butch Moses ([id number]) on 08/21/2021 7:34:51 PM Referred By: REFERRED SELF Confirmed By:Butch Moses
--- NOTE | 2021-08-21 22:07 | Electrocardiogram Report ---
Test Reason : Blood Pressure : / mmHG Vent. Rate : 057 BPM Atrial Rate : 057 BPM P-R Int : 228 ms QRS Dur : 090 ms QT Int : 472 ms P-R-T Axes : 073 -14 026 degrees QTc Int : 459 ms Sinus bradycardia with 1st degree A-V block Poor R wave progression, consider anterior LA vs. lead placement vs. LVH When compared with ECG of 20-AUG-2021 16:01, MN interval has increased Confirmed by Butch Moses ([id number]) on 08/21/2021 10:07:23 PM Referred By: REFERRED SELF Confirmed By:Butch Moses
== END 2021-08-21 17:56 | disposition home or self-care (01) ==
LOC: ED 15:50 → 2N 15:50 → SUATTDRO 17:59 → 2N 19:45